=== PATIENT | male | born 1955 | race Caucasian/White ===

== ENCOUNTER → 2023-10-01 09:33 | Outpatient (REF) | payer BC, SELFPAY | LOC: RAD 09:33 | PROVIDERS: ATTENDING PHYSICIAN Podiatrist Foot Surgery; FAMILY PHYSICIAN Family Medicine; REFERRING PHYSICIAN Podiatrist | DX: I70.90 Unspecified atherosclerosis (principal) | CPT/HCPCS: 93922; 93925 ==

== ENCOUNTER → 2023-11-22 10:53 | Outpatient (REF) | payer BC, SELFPAY ==
[2023-11-22 11:35] LABS: % Basophils 0.9 % (0-2); % Eosinophils 3.2 % (0-6); % Immature Granulocytes 0.2 % (0-0.5); % Lymphocytes 40.4 % (20.5-51.1); % Monocytes 7.1 % (1.7-9.3); % Neutrophils 48.2 % (42.2-75.2); Absolute Basophils 0.1 10^3/uL (0-0.2); Absolute Eosinophils 0.2 10^3/uL (0-0.7); Absolute Lymphocytes 2.2 10^3/uL (1.2-3.4); Absolute Monocytes 0.4 10^3/uL (0.1-0.6); Absolute Neutrophils 2.6 10^3/uL (1.4-6.5); Hematocrit 44.7 % (39.0-52.0); Hemoglobin 14.8 g/dL (13.0-18.0); Mean Corp Hgb Conc. 33.1 g/dL (33.0-37.0); Mean Corpuscular Hgb 29.9 pg (27.0-31.0); Mean Corpuscular Volume 90.3 fL (80.0-94.0); Mean Platelet Volume 10.2 fL (7.4-10.4); Nucleated Red Blood Cells % 0 % (-); Platelet Count 180 10^3/uL (130-400); Red Blood Cell Count 4.95 10^6/uL (4.70-6.10); Red Cell Dist. Width 12.5 % (11.5-14.5); White Blood Cell Count 5.3 10^3/uL (4.8-10.8)
[2023-11-22 13:06] LABS: Iron 77 ug/dl (49-181)
[2023-11-22 13:16] LABS: Percent Saturation 31 % (20-50); Total Iron Binding Capacity 244 ug/dl (261-462)
[2023-11-22 13:39] LABS: Ferritin 54.5 ng/ml (17.9-464.0)
== END ==
LOC: REG 10:53
PROVIDERS: ATTENDING PHYSICIAN Internal Medicine Hematology & Oncology; FAMILY PHYSICIAN Family Medicine
DX: D68.61 Antiphospholipid syndrome (principal); I67.81 Acute cerebrovascular insufficiency; D50.9 Iron deficiency anemia, unspecified
CPT/HCPCS: 36415; 82728; 83540; 83550; 85025

== ENCOUNTER → 2023-11-26 14:51 | Outpatient (REF) | payer BC, SELFPAY | LOC: RAD 14:51 | PROVIDERS: ATTENDING PHYSICIAN Family Medicine | DX: I65.23 Occlusion and stenosis of bilateral carotid arteries (principal) | CPT/HCPCS: 93880 ==

== ENCOUNTER → 2023-11-30 06:30 | Outpatient (REF) | payer BC, SELFPAY ==
[2023-11-30 07:30] LABS: ALT (SGPT) 26 U/L (0-50); AST (SGOT) 27 U/L (17-59); Albumin 4.1 g/dl (3.5-5.0); Alkaline Phosphatase 65 U/L (38-126); Blood Urea Nitrogen 10 mg/dl (9-20); Calcium 9.2 mg/dl (8.4-10.2); Carbon Dioxide 29 mmol/L (22-30); Chloride 104 mmol/L (98-107); Glucose 94 mg/dl (70-99); HDL Cholesterol 63 mg/dl; LDL Cholesterol, Calculated 64 mg/dl; Potassium 4.7 mmol/L (3.5-5.1); Sodium 140 mmol/L (135-145); Total Bilirubin 0.5 mg/dl (0.2-1.3); Total Cholesterol 142 mg/dl (50-199); Total Protein 6.9 g/dl (6.3-8.2); Triglyceride 76 mg/dl (10-149); Very Low Density Lipoprotein 15 mg/dl (0-30); eGFR > 60.00
[2023-11-30 08:02] LABS: PSA, Total - Diagnostic 2.24 ng/ml (0.0-4.0)
[2023-11-30 09:22] LABS: Glycohemoglobin (HgbA1c) 5.2 % (4.0-5.6)
== END ==
LOC: REG 06:30
PROVIDERS: ATTENDING PHYSICIAN Family Medicine
DX: E78.2 Mixed hyperlipidemia (principal); I10 Essential (primary) hypertension; R73.03 Prediabetes; N40.1 Benign prostatic hyperplasia with lower urinary tract symptoms
CPT/HCPCS: 36415; 80053; 80061; 83036; 84153

== ENCOUNTER → 2023-12-15 14:48 | Outpatient (REF) | payer BC, SELFPAY | LOC: RAD 14:48 | PROVIDERS: ATTENDING PHYSICIAN Internal Medicine; FAMILY PHYSICIAN Family Medicine | DX: M80.0AXS Age-related osteoporosis with current pathological fracture, other site, sequela (principal); M85.89 Other specified disorders of bone density and structure, multiple sites | CPT/HCPCS: 77080 ==

== ENCOUNTER → 2024-05-18 11:24 | Outpatient (REF) | payer BC, SELFPAY | LOC: REG 11:24 | PROVIDERS: ATTENDING PHYSICIAN Psychiatry & Neurology Neurology; FAMILY PHYSICIAN Family Medicine | DX: D68.61 Antiphospholipid syndrome (principal) | CPT/HCPCS: 36415 ==

== ENCOUNTER → 2024-05-22 13:38 | Outpatient (REF) | payer BC, SELFPAY ==
[2024-05-22 14:23] LABS: % Basophils 0.6 % (0-2); % Immature Granulocytes 0.2 % (0-0.5); % Lymphocytes 39.4 % (20.5-51.1); % Monocytes 7.8 % (1.7-9.3); Absolute Eosinophils 0.2 10^3/uL (0-0.7); Absolute Lymphocytes 2.5 10^3/uL (1.2-3.4); Absolute Monocytes 0.5 10^3/uL (0.1-0.6); Absolute Neutrophils 3.1 10^3/uL (1.4-6.5); Hematocrit 39.6 % (39.0-52.0); Hemoglobin 13.5 g/dL (13.0-18.0); Mean Corp Hgb Conc. 34.1 g/dL (33.0-37.0); Mean Corpuscular Hgb 29.2 pg (27.0-31.0); Mean Corpuscular Volume 85.7 fL (80.0-94.0); Mean Platelet Volume 10.3 fL (7.4-10.4); Nucleated Red Blood Cells % 0 % (-); Platelet Count 170 10^3/uL (130-400); Red Blood Cell Count 4.62 10^6/uL (4.70-6.10); Red Cell Dist. Width 12.7 % (11.5-14.5); White Blood Cell Count 6.3 10^3/uL (4.8-10.8)
[2024-05-22 14:56] LABS: ALT (SGPT) 24 U/L (0-50); AST (SGOT) 25 U/L (17-59); Albumin 4.2 g/dl (3.5-5.0); Alkaline Phosphatase 54 U/L (38-126); Blood Urea Nitrogen 12 mg/dl (9-20); Calcium 9.5 mg/dl (8.4-10.2); Carbon Dioxide 26 mmol/L (22-30); Chloride 99 mmol/L (98-107); Glucose 94 mg/dl (70-99); Iron 79 ug/dl (49-181); Potassium 4.5 mmol/L (3.5-5.1); Sodium 138 mmol/L (135-145); Total Bilirubin 0.5 mg/dl (0.2-1.3); Total Protein 6.9 g/dl (6.3-8.2); eGFR > 60.00
[2024-05-22 15:05] LABS: Percent Saturation 30 % (20-50); Total Iron Binding Capacity 260 ug/dl (261-462)
[2024-05-22 15:10] LABS: Vitamin D, 25-OH*** 33.3 ng/mL (30-80)
[2024-05-22 15:27] LABS: Ferritin 48.5 ng/ml (17.9-464.0)
== END ==
LOC: REG 13:38
PROVIDERS: ATTENDING PHYSICIAN Internal Medicine; FAMILY PHYSICIAN Family Medicine; OTHER PHYSICIAN Internal Medicine Hematology & Oncology
DX: M80.00XS Age-related osteoporosis with current pathological fracture, unspecified site, sequela (principal); D68.61 Antiphospholipid syndrome; I67.81 Acute cerebrovascular insufficiency; D50.9 Iron deficiency anemia, unspecified
CPT/HCPCS: 36415; 80053; 82306; 82728; 83540; 83550; 85025

== ENCOUNTER 2024-06-04 16:41 | Emergency (ER) | payer BC, SELFPAY ==
[2024-06-04 16:41] VITALS: BMI 24.4
[2024-06-04 16:46] VITALS: BP 123/70
--- NOTE | 2024-06-04 17:27 | ED.GENMED ---
History of Present Illness
General
Chief Complaint: Musculo-Skeletal Complaint
Source: patient
Time Seen by Provider: 06/04/24 17:17
History of Present Illness
History of Present Illness:
69-year-old male presents emerged complaint pain right lateral thigh. Patient has a history of clotting disorder. He had a recent CVA. He was converted to Lovenox after this recent hospitalization for CVA. No specific injury. No chest pain or
shortness of breath. No numbness or tingling in his lower right leg.
Past History
Past History
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
ED Past Surgical History: Appendectomy
Social History
Tobacco: Non-smoker
Alcohol: Occasional
Drug: None
Personal:
Living: with family
Employment: Employed
Family History
Family History: Other (Noncontributory)
Phy Exam
Physical Exam
Physical Exam:
General: Awake, Alert, Oriented X3. No acute distress.
Vitals: unremarkable
Head: Atraumatic
Eyes: Pupils equal, EOMI
Neck: Trachea midline
Neuro: Grossly nonfocal
Skin: Warm, dry, no rash
Extremities: Swelling and tenderness right lateral thigh, no ecchymosis. No rash. Pulses intact.
Course
Orders/Labs/Results
Orders:
Orders
06/04/24 17:25
Acetaminophen [Tylenol] 1,000 mg PO NOW STA
US Periph Venous LOWER Ext RT Urgent
Comment: Please image the area of tenderness, ? hematoma
Reason For Exam: swelling, pain right thigh
Vital Signs
Initial and Last Documented VS:
Initial Vital Signs
Temp Pulse Resp BP Pulse Ox
98.5 F 89 20 123/70 98
06/04/24 16:46 06/04/24 16:46 06/04/24 16:46 06/04/24 16:46 06/04/24 16:46
Last Documented Vital Signs
Temp Pulse Resp BP Pulse Ox
98.5 F 89 20 123/70 98
06/04/24 16:46 06/04/24 16:46 06/04/24 16:46 06/04/24 16:46 06/04/24 16:46
MDM/Problems Addressed
Differential Diagnosis Includes:
Right thigh hematoma, DVT, muscle spasm
MDM/Problems Addressed:
Ultrasound shows no evidence for DVT. There is a thigh hematoma. Patient does not believe this is changed in size for at least a couple days. No acute intervention required. Patient or stands return to the emergency room if he feels that area is
getting larger or if he develops a fever.
*Radiology
Radiology exam reviewed: radiology read reviewed
*Pulse Oximetry
Patient hypoxic: no
*Critical Care Note
Total Time (30-74mins, 75-104mins- exclusive of procedures): Not Applicable
ED Attending Note
-
Portions of this chart may have been created with voice recognition software.� Occasional wrong word or��sound alike� substitutions may have occurred due to the inherent limitations of voice recognition software.
Discharge Plan
Departure
Patient Disposition: Home (Routine Discharge)
Date of Disposition: 06/04/24
Time of Disposition: 19:47
Patient with high blood pressure during this ER visit?: No
Condition: Good
Discharge Problem:
Hematoma of right thigh
Instructions: Hematoma
Prescriptions:
No Action
nortriptyline 10 MG capsule
30 mg PO HS
hydroxychloroquine 200 MG tablet
200 mg PO BID
atorvastatin 20 MG tablet
20 mg PO HS
amlodipine 5 MG tablet
5 mg PO HS
warfarin [Jantoven] 5 MG tablet
10 mg PO HS
Patient Comments:
10-12.5mg po EOD
cyclobenzaprine 5 MG tablet
5 mg PO HSPRN PRN (Reason: spasm)
gabapentin 400 MG capsule
1,200 mg PO TID
solifenacin 5 MG tablet
5 mg PO HS
cholecalciferol (vitamin D3) 2,000 UNITS tablet
5,000 units PO HS
cyanocobalamin (vitamin B-12) 1,000 MCG tablet
1,000 mcg PO HS
thiamine HCl (vitamin B1) 100 MG tablet
100 mg PO HS
Referrals:
Kurt Thornton, [Family Provider] -
Activity Restrictions/Additional Instructions:
Your ultrasound is negative for a DVT. The pain is from a hematoma in the left thigh which should slowly go away on its own. Return to the ER if this is getting larger or you develop a fever.
Interventions
Interventions:
*Risk Screen - Suicide Last Done: 06/04/24 16:46
*General Assessment Last Done: 06/04/24 19:57
*Neglect/Abuse Screening Last Done: 06/04/24 16:48
ED- Fall Risk Assessment Last Done: 06/04/24 19:57
*ED COVID-19 Vaccine History Last Done: 06/04/24 19:57
*Nursing Disposition Last Done: 06/04/24 19:57
ED-Musculoskeletal Assessment Last Done: 06/04/24 17:46
Discharge Date and Time
Discharge Date/Time: 06/04/24 19:59
Print Language: ARABIC
[2024-06-04] MEDS: TYLENOL 1000 MG PO (17:37)
== END 2024-06-04 19:59 | disposition home or self-care (01) ==
LOC: EMR 16:41
PROVIDERS: EMERGENCY PHYSICIAN Emergency Medicine; FAMILY PHYSICIAN Family Medicine
DX: S70.11XA Contusion of right thigh, initial encounter (principal); X58.XXXA Exposure to other specified factors, initial encounter
CPT/HCPCS: 99284; 93971

== ENCOUNTER 2024-06-10 09:46 | Inpatient (IN) | payer BC, SELFPAY ==
[2024-06-09 12:28] VITALS: BP 143/75
--- NOTE | 2024-06-09 13:23 | ED.GENMED ---
History of Present Illness
General
Chief Complaint: Skin Problem
Source: patient and spouse
Time Seen by Provider: 06/09/24 13:12
Nursing documentation reviewed up to this point in time: agreed with
History of Present Illness
History of Present Illness:
Patient is a 69-year-old male with past medical history of antiphospholipid syndrome presents to the ER for evaluation. Patient has a recent history of central retinal artery occlusion of left eye and has been evaluated by his lead handler
Josh. This occurred in May 11, 2024. Since then he has been on Lovenox plus aspirin. Patient started with hematoma to the right leg 5 days ago. He was seen here in the ER and diagnosed with a hematoma however since then hematoma has
worsened. He has increasing pain in his barely able to walk because of pain.
In addition he feels a little bit confused at times. He has not taken any pain medication. He did follow-up with his lead handler today who sent him here to the ER also for concerning confusion in addition to worsening hematoma. Dr. Moreno
has requested workup for central retinal artery occlusion including carotid ultrasound and echo.
Patient denies any lightheadedness dizziness
Past History
Past History
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
ED Past Surgical History: Appendectomy
Social History
Tobacco: Non-smoker
Alcohol: Occasional
Drug: None
Personal:
Living: with family
Employment: Employed
Family History
Family History: Other (Noncontributory)
Review of Systems
Review of Systems
Allergies reviewed?: Yes
Other source history: family
All Other Systems: ROS reviewed and negative except as documented in HPI and ROS
Constitutional: Reports no symptoms; Denies fever, fatigue or chills
EENT: Reports no symptoms
Respiratory: Reports no symptoms
Cardiac: Reports no symptoms
ABD/GI: Reports no symptoms
Musculoskeletal: Reports other (worsening hematoma right thigh )
Skin: Reports no symptoms
Neurological: Reports no symptoms
Psychiatric: Reports no symptoms
Phy Exam
General Physical Exam
General Presentation: no apparent distress
General age: appears stated age
General Skin: warm and dry
General Habitus: normal
General Mental: alert
General Hydration: appears well hydrated
Eye Exam
Eye Exam: PERRL, EOMI and other (no vision in left eye (new since CRAO in apr) )
Eye Exam General: PERRL: bilateral and EOM intact: bilateral
Pupil Exam: Bilateral: round and reactive
Cardiovascular Exam
Cardiovascular Exam: regular rate/rhythm, no murmur and normal peripheral pulses
Pulmonary Exam
Pulmonary Exam: lungs clear and no respiratory distress
Neurological Exam
Neurological Exam: alert, oriented x3, no motor deficits, no sensory deficits and speech normal
Musculoskeletal Exam
Musculoskeletal Exam: other (Right thigh with obvious palpable large hematoma to lateral thigh with ecchymosis ecchymosis also extending to knee)
Skin Exam
Skin Exam: normal color and warm/dry
Psychiatric Exam
Psychiatric Exam: normal mood/affect
Course
Orders/Labs/Results
Orders:
Orders
06/09/24 13:23
CT Head W/o Iv Contrast Urgent
Comment:
Reason For Exam: confusion
IV Insert/Care/Rem.- Treatment PRN
06/09/24 13:25
Carotid US [US Cerebrovascular] Urgent
Comment:
Reason For Exam: confusion
06/09/24 13:33
Type+Screen Urgent
Complete Blood Count/With Diff Urgent
Comprehensive Metabolic Panel Urgent
06/09/24 13:43
CT Lower Ext Angio W/wo Iv Con Urgent
Comment: delayed images please
Reason For Exam: woresning hematoma concern for active bleeding
Abnormal Lab Results
06/09/24
13:33
RBC 4.11 L 10^6/uL
(4.70-6.10)
Hgb 12.5 L g/dL
(13.0-18.0)
Hct 37.1 L %
(39.0-52.0)
Creatinine 0.6 L mg/dL
(0.7-1.3)
Glucose 120 H mg/dl
(70-99)
06/09/24 13:33
06/09/24 13:33
Vital Signs
Initial and Last Documented VS:
Initial Vital Signs
Temp Pulse Resp BP Pulse Ox
97.8 F 70 16 143/75 98
06/09/24 12:28 06/09/24 12:28 06/09/24 12:28 06/09/24 12:28 06/09/24 12:28
Last Documented Vital Signs
Temp Pulse Resp BP Pulse Ox
97.8 F 68 18 144/82 100
06/09/24 12:28 06/09/24 17:48 06/09/24 17:48 06/09/24 17:48 06/09/24 17:48
MDM/Problems Addressed
Differential Diagnosis Includes:
not limited to: active bleed in right thigh/hematoma, anemia,
MDM/Problems Addressed:
69 yr old male with past medical history of antiphospholipid syndrome on Lovenox and aspirin presents for evaluation. Patient as documented recently had a central retinal artery occlusion in the left eye in April and is followed by Dr. Moreno of
ophthalmology he was placed on aspirin in addition to Lovenox and since then developed a spontaneous hematoma to right thigh. He was seen here on Wednesday had ultrasound which showed hematoma but is back today with increasing pain and size of
hematoma. CT angio done on the right leg with no active bleeding. Patient denies any weakness to the leg denies any new numbness and tingling. He does have some chronic numbness and tingling. Denies any calf tenderness. No evidence of
compartment syndrome on exam. No evidence of infection.
In addition patient was sent by ophthalmology who is following his central retinal artery occlusion of the left eye. Patient has been a little more confused lately however he does contribute this to just feeling discomfort in his leg. He has a
normal neurologic exam here in the ER CT head with no new acute findings.
Ophthalmology did request a carotid ultrasound which is done and pending. Patient did have an echo at [facility] which was normal as per
*Radiology
Radiology exam reviewed: radiology read reviewed
*Pulse Oximetry
Patient hypoxic: no
*Critical Care Note
Total Time (30-74mins, 75-104mins- exclusive of procedures): Not Applicable
Data Reviewed
Review of Other/Old Records Reveals: Other (previous ED visit)
Source: patient and spouse
ED Attending Note
-
Portions of this chart may have been created with voice recognition software.� Occasional wrong word or��sound alike� substitutions may have occurred due to the inherent limitations of voice recognition software.
Discharge Plan
Departure
Patient Disposition: Admit
Date of Disposition: 06/09/24
Time of Disposition: 16:27
Admit to: Med/Surg
Admit to doctor: hospitalist
Presentation/result/management discussed w/ accepting MD/DO: Hospitalist
Patient with high blood pressure during this ER visit?: Yes
Condition: Fair
Covid-19: Not Applicable
Discharge Problem:
Hematoma of right thigh, Central artery occlusion of retina
Prescriptions:
No Action
nortriptyline 10 MG capsule
30 mg PO HS
hydroxychloroquine 200 MG tablet
200 mg PO BID
atorvastatin 20 MG tablet
20 mg PO HS
solifenacin 5 MG tablet
5 mg PO HS
cyanocobalamin (vitamin B-12) 1,000 MCG tablet
1,000 mcg PO DAILYPRN PRN (Reason: Supplement)
thiamine HCl (vitamin B1) 100 MG tablet
100 mg PO DAILYPRN PRN (Reason: supplement)
gabapentin 600 mg tablet
1,200 mg PO Q8
amlodipine 2.5 mg tablet
2.5 mg PO HS
enoxaparin 80 mg/0.8 mL syringe
80 mg SC BID
cholecalciferol (vitamin D3) 125 mcg (5,000 unit) Tablet
125 mcg PO DAILYPRN PRN (Reason: supplement)
Referrals:
Kurt Thornton DO [Family Provider] -
Interventions
Interventions:
*Risk Screen - Suicide Last Done: 06/09/24 12:28
*General Assessment Last Done: 06/09/24 12:28
*Neglect/Abuse Screening Last Done: 06/09/24 12:28
ED-Skin Assessment Last Done: 06/09/24 13:38
Discharge Date and Time
Print Language: NORTHER[place] IRISH
[2024-06-09 13:40] LABS: % Basophils 0.6 % (0-2); % Eosinophils 2.3 % (0-6); % Immature Granulocytes 0.2 % (0-0.5); % Lymphocytes 25.2 % (20.5-51.1); % Monocytes 6.7 % (1.7-9.3); Absolute Eosinophils 0.2 10^3/uL (0-0.7); Absolute Lymphocytes 1.6 10^3/uL (1.2-3.4); Absolute Monocytes 0.4 10^3/uL (0.1-0.6); Absolute Neutrophils 4.2 10^3/uL (1.4-6.5); Hematocrit 37.1 % (39.0-52.0); Hemoglobin 12.5 g/dL (13.0-18.0); Mean Corp Hgb Conc. 33.7 g/dL (33.0-37.0); Mean Corpuscular Hgb 30.4 pg (27.0-31.0); Mean Corpuscular Volume 90.3 fL (80.0-94.0); Mean Platelet Volume 10.2 fL (7.4-10.4); Nucleated Red Blood Cells % 0 % (-); Platelet Count 151 10^3/uL (130-400); Red Blood Cell Count 4.11 10^6/uL (4.70-6.10); Red Cell Dist. Width 12.6 % (11.5-14.5); White Blood Cell Count 6.4 10^3/uL (4.8-10.8)
[2024-06-09 14:09] LABS: ALT (SGPT) 21 U/L (0-50); AST (SGOT) 26 U/L (17-59); Albumin 4.2 g/dl (3.5-5.0); Alkaline Phosphatase 59 U/L (38-126); Blood Urea Nitrogen 10 mg/dl (9-20); Calcium 8.9 mg/dl (8.4-10.2); Carbon Dioxide 28 mmol/L (22-30); Chloride 99 mmol/L (98-107); Glucose 120 mg/dl (70-99); Potassium 4.5 mmol/L (3.5-5.1); Sodium 138 mmol/L (135-145); Total Bilirubin 0.9 mg/dl (0.2-1.3); Total Protein 6.8 g/dl (6.3-8.2); eGFR > 60.00
--- NOTE | 2024-06-09 17:02 | PHANOTE ---
Med Rec Note:
Pt mentioned taking Lisinopril 5mg, medication not shown in Dr Meneses. Per [facility] Dr Corcoran discontinued medication on 08/16/23.
--- NOTE | 2024-06-09 17:32 | HPS.HSE ---
Family Physician
-
Family Physician: Kurt Thornton
Chief Complaint
-
Right thigh hematoma with pain, increased confusion from baseline short-term memory impairment
History of Present Illness
69-year-old male with history of antiphospholipid syndrome who is on Lovenox and aspirin due to a Central retinal artery occlusion of his Left eye that is being followed by Dr. Moreno. He reports he has loss of vision in his left eye since then.
He was on prior Coumadin for prior strokes x 3 but needed to be changed to Lovenox and aspirin due to retinal artery occlusion on 05/11/2024. Since being on aspirin and Lovenox he developed a spontaneous hematoma to his right thigh and was seen in
the ER on 06/04/2022 where he had an ultrasound confirming the hematoma. He comes today to the ER complaining of increased size of his Right thigh hematoma with continued pain along with feeling a little bit more confused although not
confused here. He and his state he has some short-term memory impairment secondary to his prior strokes along with some mild chronic ambulatory dysfunction. He reports he does not use a cane due to being vein, although he reports he has been
very unsteady the past few days due to the pain in his right thigh. He also believes that his short-term confusion is worse due to the pain being overwhelming at times. He spoke with his paleontology teacher who sent him here to the ER for a CVA
workup. In the ER he had CT angio of his right leg with no active bleeding along with CT head showing no acute stroke. His carotid ultrasound results are currently pending. He had recent MRI at [facility] which was normal per ER records.
His past medical history of antiphospholipid antibody syndrome with history of 3 cryptogenic strokes, chronic short-term memory impairment likely vascular from 3 prior strokes, left eye retinal artery occlusion 05/12/2024, HTN, HLD, Schatzki's ring,
hiatal hernia, BPH, compression fracture T5, erectile dysfunction, neurogenic bladder, diverticulosis, neuropathic pain syndrome, vitamin D deficiency
Medical History
Past Medical History
Past Medical History: Reports Other
Additional Past Medical History:
antiphospholipid antibody syndrome with history of 3 cryptogenic strokes
chronic short-term memory impairment likely vascular from 3 prior strokes
Chronic ambulatory dysfunction from prior strokes
left eye retinal artery occlusion 05/12/2024
Right thigh hematoma spontaneous from Lovenox/aspirin
Alcohol use
HTN
HLD
Schatzki's ring,
hiatal hernia
BPH
Chronic micturation
compression fracture T5
erectile dysfunction
diverticulosis,
neuropathic pain syndrome,
vitamin D deficiency
Past Surgical History: Reports Other
Additional Past Surgical History:
Right knee ligament repair as teen
Appendectomy
Schatzki's ring dilation x 3
Colonoscopy x 4
Social History
Tobacco: Non-smoker
Alcohol: Daily (2 beers)
Drug: None
Personal:
Living: With Family ()
Family History
Family History: Not pertinent
Allergies / Home Medications
Allergies reflects when Allergies were last updated in [employer].
Home Medications with original date entered in [employer]
Allergy/Medication List:
Allergies
Allergy/AdvReac Type Severity Reaction Status Date / Time
meperidine HCl [From Demerol] Allergy 'severe Verified 06/09/24 12:28
vomiting'
Home Medications
hydroxychloroquine 200 mg tablet 200 mg PO BID ARTHRITIS 02/11/16
nortriptyline 10 mg capsule 30 mg PO HS mental health 02/11/16
atorvastatin 20 mg tablet 20 mg PO HS High cholesterol 08/06/19
cyanocobalamin (vitamin B-12) 1,000 mcg tablet 1,000 mcg PO DAILYPRN PRN Supplement 03/04/20
solifenacin 5 mg tablet 5 mg PO HS Urinary issue 03/04/20
thiamine HCl (vitamin B1) 100 mg tablet 100 mg PO DAILYPRN PRN supplement 03/04/20
Aspir-81 81 mg PO HS 06/09/24
amlodipine 2.5 mg tablet 2.5 mg PO HS 06/09/24
cholecalciferol (vitamin D3) 125 mcg (5,000 unit) tablet 125 mcg PO DAILYPRN PRN supplement 06/09/24
enoxaparin 80 mg/0.8 mL subcutaneous syringe 80 mg SC BID 06/09/24
gabapentin 600 mg tablet 1,200 mg PO Q8 06/09/24
Review of Systems
-
History Source: Patient and Family ( at bedside)
A 12 point ROS was completed and negative except as noted: Yes
Constitutional: Reports Other (Increased short-term confusion thought to be felt due to right thigh hematoma pain); Denies Fever or Chills
EENT: Denies Sore Throat or Runny Nose
Respiratory: Denies Cough or Trouble Breathing
Cardiac: Denies Chest Pain, Diaphoresis, Palpitations or Syncope
Abdomen/GI: Denies Abdominal Pain, Nausea, Vomiting, Diarrhea, Constipated or Bloody Stools
: Denies Dysuria, Frequency, Flank Pain, Incontinence, Difficulty Voiding or Urgency
Musculoskeletal: Reports Other (Right thigh hematoma with resolving ecchymosis present on admission, acute on chronic ataxia due to thigh pain); Denies Joint Pain or Edema
Skin: Denies Itching or Rash
Neurological: Denies Dizzy, Headache or Weakness
Endocrine: Reports No Symptoms
Hematologic/Lymphatic: Reports No Symptoms
Psych: Reports Calm
Physical Exam
Vital Signs
Vital Signs
Temp Pulse Resp BP Pulse Ox
97.8 F 70 16 143/75 98
06/09/24 12:28 06/09/24 12:28 06/09/24 12:28 06/09/24 12:28 06/09/24 12:28
Physical Exam
General: Conversant and Pain; No Fever or Chills
HEENT: NormoCephalic, Anicteric, Moist mucous membranes, [place] Conjunctivae and No Ptosis
Respiratory: Clear; No Wheezes, Rales or Rhonchi
Cardiac: S1/S2 and Regular Rhythm; No Murmur, Rub, Gallop, Peripheral Edema or Carotid Bruits
Breast: Deferred by me
GI: Soft, Non Tender, Non Distended, Normal Bowel Sounds and No Hepatosplenomegaly
Rectal: Deferred by Provider
Genito-urinary: Deferred by me
Musculoskeletal: No Clubbing, No Cyanosis, No Edema and Other (Right thigh hematoma with resolving ecchymosis present on admission)
Skin: Warm and Dry; No Rash
Neuro: AO x 3 (With chronic short-term memory impairment), Cranial Nerves Intact and No Sensory Deficits; No Slurred Speech, Facial Droop, Tremors or Sedated
Psych: Calm
Laboratory Results
-
06/09/24 13:33
06/09/24 13:33
Laboratory Results
Total Bilirubin 0.9 mg/dl (0.2-1.3) 06/09/24 13:33
AST 26 U/L (17-59) 06/09/24 13:33
ALT 21 U/L (0-50) 06/09/24 13:33
Alkaline Phosphatase 59 U/L (38-126) 06/09/24 13:33
Data Reviewed
-
Lab Data: Labs Reviewed by me
Impression/Plan
-
Impression/plan:
Observation telemetry
#Acute on Chronic Right thigh hematoma likely secondary to Lovenox and aspirin
#Hx antiphospholipid antibody syndrome
-Was seen in ER on 06/04/2024 with no medication changes
-Hgb 12.5 today prior 13.5 on 05/22/2024
-Patient was on aspirin from 05/12/2024 until last night 06/08/2024 he held due to expanding hematoma
-HOLD aspirin 81 mg at bedtime -last dose was 06/08/24 @ 2200
-HOLD Lovenox 80 mg twice daily x 24 hours
-H&H every 12 hours
-Tylenol mild pain, Percocet moderate�severe pain
-Zofran as needed nausea
-Consult Hematology-given history of antiphospholipid antibody syndrome
#Acute ambulatory dysfunction secondary to pain from right thigh hematoma
#chronic ambulatory dysfunction secondary to prior strokes
-Will consult PT/OT
#Acute on chronic short-term memory impairment from prior strokes
#Hx 3 cryptogenic CVAs(most recent subarachnoid July 2016, prior embolic strokes)
#Hx antiphospholipid antibody syndrome
-Consult Neurology
-Check MRI brain
-Check lipid profile, HgbA1c
-2D echo recent at [facility] was negative�scanned into chart
-PT/OT consult
CT head no acute intracranial abnormality
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
Patient's Coumadin was converted to Lovenox 80 mg SQ twice daily with aspirin 81 mg added on 05/12/2024 due to above retinal occlusion in April 2024
-Patient follows with Dr. Moreno
-HOLD aspirin 81 mg daily
#Alcohol use
Drinks daily 2 beers
-Will continue patient's B12
-No concern currently for any possible withdrawal
# HTN-benign
BP 144/82
-Continue amlodipine 2.5 mg at bedtime
#HLD
-Check lipid profile
-Continue atorvastatin 20 mg at bedtime
#BPH
#Chronic difficulty voiding needs to stand and focus per patient
-Bladder scans with protocol
#Schatzki's ring with history of 3 dilations for 2013, 2015, 03/07/2020
-Can now eat regular diet
#Hiatal hernia
#Compression fracture T5
#Neuropathic pain syndrome
-Continue gabapentin 1200 mg p.o. every 8 hours
#Anxiety
Continue nortriptyline 30 mg at bedtime
#Arthritis right knee
Continue hydroxychloroquine 200 mg twice daily
Other PMH:
Erectile dysfunction -hold solifenacin 5 mg at bedtime
diverticulosis,
vitamin D deficiency-continue vitamin D3
DVT prophylaxis
Will currently hold patient's Lovenox x 24 hours due to right thigh hematoma
Full code
[2024-06-09 17:48] VITALS: BP 144/82
--- NOTE | 2024-06-09 17:54 | W.PN.UPDATE ---
Update Note
Progress Note Update
I saw and examined the patient.
The AMERICAN SIGN LANGUAGE TEACHER's note was reviewed and I agree with the note.
Patient is a 69yr M APLS, left CRAO, HLD, essential HTN, dep/anxiety came to ER with worsening right leg thigh hematoma. On 05/11 patient had new left CRAO and was seen by ophthalmology. Patient has been switched from warfarin to Lovenox/aspirin.
On Wednesday patient was noted to having new spontaneous right mid thigh swelling and pain, came to ER for this and was found to have small [id number] superficial hematoma. Due to patient increased risk of clotting disorder patient was maintained on
Lovenox aspirin and was discharged home. Patient came to ER today again for worsening pain and extending swelling proximal and distal in the right thigh. A CT right leg showing further extension of hematoma cranio caudally. Patient have ambulatory
dysfunction from pain.
HEENT: No pallor, cyanosis, or jaundice. Throat clear.
NECK: Supple. No JVD.
RESPIRATORY: Lungs clear to auscultation.
CVS: S1, S2 normal. RRR. No murmur, rub or gallop.
ABDOMEN: Soft, non-tender. No distension. BS+/normal.
EXTREMITIES: Swelling RLE
FOUNDRY SUPERINTENDANT: AOx3. No focal deficits.
Right leg hematoma
-CT RLE showing extension hematoma
-no clinical signs of limb threatening ischemia/compartment syndrome. continue monitoring
-Hold lovenox for tonight
-hematology input in [facility],. f/us with dr lynch
-continue PRN pain medication
-PT/OT evaluation in morning
Left CRAO in may 11
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
-f/us with Dr Berrios
Confusion
-aox3 in er, some memory issues
-No signs of any infection
-opthal wanted to r/o cva, clinically less likely
-MRI brain w/o contrat in morning
DVT PPX - scd
Full code
Total time spent : 78 mins
I personally saw and examined the patient.
I have reviewed all diagnostic interpretations and treatment plans as written.
Time includes patient management by me, time spent at the patients bedside, time to review lab and imaging results, discussing patient care, documentation in the medical record, and time spent with the family or caregiver and discussing care plan
with RN/Consultants.
[2024-06-09] MEDS: PERCOCET 5/325 1 TABLET PO (18:35)
[2024-06-09 18:37] VITALS: BMI 24.4
--- NOTE | 2024-06-09 20:40 | PTCARENOTE ---
Patient arrived to 316-2 from ED via stretcher, ambulated from stretcher to bed with standby assist. Patient alert and oriented, able to answer questions appropriately. NIH score 0 upon admission. Initiated on traffic monitor specialist #[id number] -- NSR. C/o
slight discomfort to right leg at area of hematoma and swollen knee -- tolerable. Area of hematoma marked on skin to evaluate. Awaiting heme consult and MRI brain at this time. Call pablo within reach, patient rings for assistance appropriately when
needed. Will monitor.
[2024-06-09 20:54] VITALS: BMI 24.5
[2024-06-09 20:55] VITALS: BP 130/73
[2024-06-09] MEDS: PAMELOR 30 MG PO (21:51)
[2024-06-09] MEDS: NORVASC 2.5 MG PO (21:51)
[2024-06-09] MEDS: PLAQUENIL 200 MG PO (21:51)
[2024-06-09] MEDS: LIPITOR 20 MG PO (21:51)
[2024-06-09 23:25] VITALS: BP 103/74
[2024-06-10] VITALS (7 sets, daily range): BP systolic 109–124; BP diastolic 68–79
[2024-06-10] MEDS: NEURONTIN 1200 MG PO ×4 (00:41→23:29)
[2024-06-10 02:38] LABS: Hematocrit 37.5 % (39.0-52.0); Hemoglobin 12.7 g/dL (13.0-18.0)
[2024-06-10 06:52] LABS: % Basophils 0.6 % (0-2); % Eosinophils 3.6 % (0-6); % Immature Granulocytes 0.2 % (0-0.5); % Lymphocytes 29.5 % (20.5-51.1); % Neutrophils 57.1 % (42.2-75.2); Absolute Eosinophils 0.2 10^3/uL (0-0.7); Absolute Lymphocytes 1.6 10^3/uL (1.2-3.4); Absolute Monocytes 0.5 10^3/uL (0.1-0.6); Absolute Neutrophils 3.1 10^3/uL (1.4-6.5); Hematocrit 39.1 % (39.0-52.0); Hemoglobin 12.9 g/dL (13.0-18.0); Mean Corpuscular Hgb 29.7 pg (27.0-31.0); Mean Corpuscular Volume 89.9 fL (80.0-94.0); Mean Platelet Volume 10.3 fL (7.4-10.4); Nucleated Red Blood Cells % 0 % (-); Platelet Count 165 10^3/uL (130-400); Red Blood Cell Count 4.35 10^6/uL (4.70-6.10); Red Cell Dist. Width 12.4 % (11.5-14.5); White Blood Cell Count 5.4 10^3/uL (4.8-10.8)
[2024-06-10 07:14] LABS: ALT (SGPT) 20 U/L (0-50); AST (SGOT) 25 U/L (17-59); Albumin 3.9 g/dl (3.5-5.0); Alkaline Phosphatase 64 U/L (38-126); Blood Urea Nitrogen 9 mg/dl (9-20); Calcium 8.9 mg/dl (8.4-10.2); Carbon Dioxide 27 mmol/L (22-30); Chloride 104 mmol/L (98-107); Estimated Creatinine Clearance > 125 ml/min; Glucose 102 mg/dl (70-99); HDL Cholesterol 50 mg/dl; LDL Cholesterol, Calculated 44 mg/dl; Potassium 4.5 mmol/L (3.5-5.1); Sodium 140 mmol/L (135-145); Total Bilirubin 0.8 mg/dl (0.2-1.3); Total Cholesterol 109 mg/dl (50-199); Total Protein 6.5 g/dl (6.3-8.2); Triglyceride 79 mg/dl (10-149); Very Low Density Lipoprotein 15 mg/dl (0-30); eGFR > 60.00
--- NOTE | 2024-06-10 07:26 | CON.ONC ---
Impression
Impression
Antiphospholipid antibody syndrome with history of 3 cryptogenic strokes
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
Spontaneous right leg hematoma while on anticoagulation
Plan
Plan
CT RLE showing extension hematoma without signs of limb threatening ischemia/compartment syndrome.
Hold Lovenox & aspirin for 24 hours. Resume tonight as VERY HIGH RISK if he remains off A/C too long.
He was on 1 mg/kg SQ Q12 + ASA 81 mg PO QD.
RESUME 0.5 mg/kg tonight 10 pm. If hematoma stable, increase to 1 mg/kg Monday 06/11 10 AM x 1 dose. If remains stable, resume 1 mg/kg SQ Q12 Tuesday 06/12.
Resume ASA 81 mg PO QD on Wednesday 06/13.
Because of the complexity of this situation and the monitoring that needs to happen for this step therapy, I DID NOT ENTER ABOVE ORDERS. Will ask attending to when he arrives. Will coordinate.
Patient History
History of Present Illness
CC: Right leg hematoma.
Patient is a 69yr M with antiphospholipid syndrome who is on Lovenox and aspirin (follows with [facility]) with multiple prior anticoagulation failures. He most recently had a central retinal artery occlusion of his left eye that is being followed by
Dr. Moreno. He has left eye blindness result of that CVA. He was on prior Coumadin for prior strokes x 3 but needed to be changed to Lovenox and aspirin due to retinal artery occlusion on 05/11/2024. Since being on aspirin and Lovenox he
developed a spontaneous hematoma to his right thigh and was seen in the ER on 06/04/2022 where he had an ultrasound confirming the hematoma. He comes back to the ER yesterday 06/09 complaining of increased size of his right thigh hematoma.
A CT right leg showing further extension of hematoma cranio caudally. Patient was having ambulatory dysfunction from pain last night, seems better this AM. Lovenox and ASA held.
Past-Medical/Surgical History
PMH:
antiphospholipid antibody syndrome with history of 3 cryptogenic strokes
chronic short-term memory impairment likely vascular from 3 prior strokes
chronic ambulatory dysfunction from prior strokes
left eye retinal artery occlusion 05/12/2024
Right thigh hematoma spontaneous from Lovenox/aspirin
Alcohol use
HTN
HLD
schatzki's ring,
hiatal hernia
BPH
Chronic micturation
compression fracture T5
erectile dysfunction
diverticulosis,
neuropathic pain syndrome,
vitamin D deficiency
PSH:
Right knee ligament repair as teen
Appendectomy
Schatzki's ring dilation x 3
Colonoscopy x 4
Social History
Tobacco: Non-smoker
Alcohol: Daily (2 beers)
Drug: None
Personal:
Living: With Family ()
Family History
Family History: Not pertinent
Patient Medication
�Medication �Instructions �Recorded �Confirmed �Last Taken �Type
hydroxychloroquine 200 mg tablet 200 mg PO BID ARTHRITIS 02/11/16 06/09/24 06/09/24 History
nortriptyline 10 mg capsule 30 mg PO HS mental health 02/11/16 06/09/24 06/08/24 History
atorvastatin 20 mg tablet 20 mg PO HS High cholesterol 08/06/19 06/09/24 06/08/24 History
cyanocobalamin (vitamin B-12) 1,000 mcg PO DAILYPRN PRN 03/04/20 06/09/24 06/15/20 History
1,000 mcg tablet Supplement
solifenacin 5 mg tablet 5 mg PO HS Urinary issue 03/04/20 06/09/24 06/08/24 History
thiamine HCl (vitamin B1) 100 mg 100 mg PO DAILYPRN PRN supplement 03/04/20 06/09/24 06/15/20 History
tablet
Aspir-81 81 mg PO HS 06/09/24 06/09/24 06/08/24 22:00 History
amlodipine 2.5 mg tablet 2.5 mg PO HS 06/09/24 06/09/24 06/08/24 History
cholecalciferol (vitamin D3) 125 125 mcg PO DAILYPRN PRN supplement 06/09/24 06/09/24 Unknown History
mcg (5,000 unit) tablet
enoxaparin 80 mg/0.8 mL 80 mg SC BID 06/09/24 06/09/24 06/09/24 History
subcutaneous syringe
gabapentin 600 mg tablet 1,200 mg PO Q8 06/09/24 06/09/24 06/09/24 History
Active Medications
Generic Name Dose Route Start Last Admin
Trade Name Freq PRN Reason Stop Dose Admin
Acetaminophen 650 mg 06/09/24 20:17
Acetaminophen 325 Mg Tablet PO 07/07/24 20:16
Q4HPRN PRN
mild pain/GARCIA/temp> 100.4F
Amlodipine Besylate 2.5 mg 06/09/24 22:00 06/09/24 21:51
Amlodipine 2.5 Mg Tablet PO 07/07/24 21:59 2.5 mg
HS SUZETTE Administration
Atorvastatin Calcium 20 mg 06/09/24 22:00 06/09/24 21:51
Atorvastatin (Lipitor) 20 Mg Tablet PO 07/07/24 21:59 20 mg
HS SUZETTE Administration
Bisacodyl 10 mg 06/09/24 20:17
Bisacodyl 10 Mg Rectal Suppository RECTAL 07/07/24 20:16
[id number] PRN
constipation
Cholecalciferol 125 mcg 06/09/24 20:17
Cholecalciferol (Vitamin D3) 125 Mcg Tablet (5,000 Units) PO 07/07/24 20:16
DAILYPRN PRN
supplement
Cyanocobalamin 1,000 mcg 06/09/24 20:17
Cyanocobalamin 1,000 Mcg Tablet PO 07/07/24 20:16
DAILYPRN PRN
Supplement
Gabapentin 1,200 mg 06/10/24 00:00 06/10/24 00:41
Gabapentin 400 Mg Capsule PO 07/08/24 00:00 1,200 mg
Q8 SUZETTE Administration
Hydroxychloroquine Sulfate 200 mg 06/09/24 20:17 06/09/24 21:51
Hydroxychloroquine 200 Mg Tablet PO 07/07/24 20:16 200 mg
BID SUZETTE Administration
Nortriptyline HCl 30 mg 06/09/24 22:00 06/09/24 21:51
Nortriptyline 10 Mg Capsule PO 07/07/24 21:59 30 mg
HS SUZETTE Administration
Ondansetron HCl 4 mg 06/09/24 18:11
Ondansetron 4 Mg/2 Ml Vial IV 07/07/24 18:10
Q6HPRN PRN
NAUSEA/VOMITING
Oxycodone HCl 5 mg 06/09/24 20:17
Oxycodone 5 Mg Regular Release Tablet PO 06/23/24 20:16
Q4HPRN PRN
moderate pain
Oxycodone HCl 10 mg 06/09/24 20:17
Oxycodone 10 Mg Regular Release Tablet PO 06/23/24 20:16
Q4HPRN PRN
severe pain
Polyethylene Glycol 17 grams 06/09/24 20:17
Polyethylene Glycol Powder 17 Grams Packet PO 07/07/24 20:16
DAILYPRN PRN
constipation
Senna/Docusate Sodium 1 tablet 06/09/24 20:17
Docusate W/Senna (Jodi-Colace) Tablet PO 07/07/24 20:16
BIDPRN PRN
constipation
Sodium Chloride 0 flush 06/09/24 21:00
Sodium Chloride 0.9% (Flush) Syringe IV 07/07/24 20:59
PER PROTOCOL SUZETTE
Thiamine HCl 100 mg 06/09/24 20:17
Thiamine 100 Mg Tablet PO 07/07/24 20:16
DAILYPRN PRN
supplement
Physical Exam
-
General: Well Developed, Well Nourished, No Apparent Distress and Comfortable
HEENT: Negative Jaundice
Cardiology: S1 and S2
Pulmonary: Clear
GI: Soft
Extremities: No C/C/E and Other (right LE hematoma seems stable based on inked measurement)
Neurology: Other (left eye visual loss)
Labs
Lab Results
WBC 5.4 10^3/uL (4.8-10.8) 06/10/24 06:31
RBC 4.35 10^6/uL (4.70-6.10) L 06/10/24 06:31
Hgb 12.9 g/dL (13.0-18.0) L 06/10/24 06:31
Hct 39.1 % (39.0-52.0) 06/10/24 06:31
MCV 89.9 fL (80.0-94.0) 06/10/24 06:31
MCH 29.7 pg (27.0-31.0) 06/10/24 06:31
MCHC 33.0 g/dL (33.0-37.0) 06/10/24 06:31
RDW 12.4 % (11.5-14.5) 06/10/24 06:31
Plt Count 165 10^3/uL (130-400) 06/10/24 06:31
MPV 10.3 fL (7.4-10.4) 06/10/24 06:31
Abs Immat Gran (auto) 0.0 10^3/uL (0-0.05) 06/10/24 06:31
Absolute Neuts (auto) 3.1 10^3/uL (1.4-6.5) 06/10/24 06:31
Absolute Lymphs (auto) 1.6 10^3/uL (1.2-3.4) 06/10/24 06:31
Absolute Monos (auto) 0.5 10^3/uL (0.1-0.6) 06/10/24 06:31
Absolute Eos (auto) 0.2 10^3/uL (0-0.7) 06/10/24 06:31
Absolute Basos (auto) 0.0 10^3/uL (0-0.2) 06/10/24 06:31
Immature Gran % 0.2 % (0-0.5) 06/10/24 06:31
Neutrophils % 57.1 % (42.2-75.2) 06/10/24 06:31
Lymphocytes % 29.5 % (20.5-51.1) 06/10/24 06:31
Monocytes % 9.0 % (1.7-9.3) 06/10/24 06:31
Eosinophils % 3.6 % (0-6) 06/10/24 06:31
Basophils % 0.6 % (0-2) 06/10/24 06:31
Creatinine 0.6 mg/dL (0.7-1.3) L 06/10/24 06:32
Vital Signs
Vital Signs
Temp Pulse Resp BP Pulse Ox
97.8 F 69 18 109/68 97
06/10/24 03:08 06/10/24 03:08 06/10/24 03:08 06/10/24 03:08 06/10/24 03:08
[2024-06-10 08:02] LABS: Hepatitis C Antibody Negative (Negative)
[2024-06-10] MEDS: PLAQUENIL 200 MG PO ×2 (08:20→20:56)
--- NOTE | 2024-06-10 09:17 | W.PN.HOSP.TC ---
Today's Communication/Plan
-
Neuro consult
MRI brain
result Lovenox as per Dr. Zambrano
Assessment / Plan
Assessment / Plan
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
Patient's Coumadin was converted to Lovenox 80 mg SQ twice daily with aspirin 81 mg added on 05/12/2024 due to above retinal occlusion in April 2024
-Patient follows with Dr. Moreno
#Acute on chronic short-term memory impairment from prior strokes
#Hx 3 cryptogenic CVAs(most recent subarachnoid July 2016, prior embolic strokes)
#Hx antiphospholipid antibody syndrome
-Consult Neurology, consult placed and discussed With Dr. Walton
- MRI brain today
-Check lipid profile on Lipitor: Chol 109/trig 79/HDL 50/LDL 44, HgbA1c
-2D echo recent at [facility] was negative�scanned into chart
-PT/OT consult
-HOLD aspirin 81 mg daily
discussed with Dr. Zambrano: He was on 1 mg/kg SQ Q12 + ASA 81 mg PO QD.
RESUME 0.5 mg/kg tonight 10 pm. If hematoma stable, increase to 1 mg/kg Monday 06/11 10 AM x 1 dose. If remains stable, resume 1 mg/kg SQ Q12 Tuesday 06/12.
Resume ASA 81 mg PO QD on Wednesday 06/13.
#Alcohol use
Drinks daily 2 beers
-Will continue patient's B12
-No concern currently for any possible withdrawal
Admitting doctor was concerned about some degree of confusion
currently pt is showing no signs of confusion. MRI has been ordered and neuro consult has been requested
# HTN-benign
BP 144/82
-Continue amlodipine 2.5 mg at bedtime
#HLD
-Check lipid profile
-Continue atorvastatin 20 mg at bedtime
#BPH
#Chronic difficulty voiding needs to stand and focus per patient
-Bladder scans with protocol
#Schatzki's ring with history of 3 dilations for 2013, 2015, 03/07/2020
-Can now eat regular diet
#Hiatal hernia
#Compression fracture T5
#Neuropathic pain syndrome
-Continue gabapentin 1200 mg p.o. every 8 hours
#Anxiety
Continue nortriptyline 30 mg at bedtime
#Arthritis right knee
Continue hydroxychloroquine 200 mg twice daily
Other PMH:
Erectile dysfunction -hold solifenacin 5 mg at bedtime
diverticulosis,
vitamin D deficiency-continue vitamin D3
DVT prophylaxis
see above anticoag rec
Dr. Avendaño rec change to full admit
complex situation
Full code
Anticipated Discharge: > 48 hours
Subjective/Interval History
-
Date of Service: June 10, 2024
Awake, alert, conversant
Objective Data
-
Labs:
Laboratory Results
06/10/24 06/10/24 06/10/24
02:11 06:31 06:32
WBC 5.4
Hgb 12.7 L 12.9 L
Hct 37.5 L 39.1
Plt Count 165
Sodium 140
Potassium 4.5
Chloride 104
Carbon Dioxide 27
BUN 9
Creatinine 0.6 L
Glucose 102 H
Calcium 8.9
Total Bilirubin 0.8
AST 25
ALT 20
Alkaline Phosphatase 64
06/10/24
13:30
WBC
Hgb Pending
Hct Pending
Plt Count
Sodium
Potassium
Chloride
Carbon Dioxide
BUN
Creatinine
Glucose
Calcium
Total Bilirubin
AST
ALT
Alkaline Phosphatase
Vital Signs:
Vital Signs
Temp Pulse Resp BP Pulse Ox
96.8 F L 72 16 121/76 97
06/10/24 07:00 06/10/24 07:00 06/10/24 07:00 06/10/24 07:00 06/10/24 07:00
I&O
06/09/24 06/10/24 06/11/24
06:59 06:59 06:59
Intake Total 480 / 480
Balance 480 / 480
Review of Systems
-
History Source: Patient
Constitutional: Denies Fever
Respiratory: Reports No Symptoms
Cardiac: Reports No Symptoms; Denies Chest Pain
Abdomen/GI: Reports No Symptoms; Denies Abdominal Pain
Musculoskeletal: Reports Muscle Pain (Rt leg pain in area of hematoma )
Neuro: Reports No Symptoms (Hx of CVA x 3, left sided residual with weakness and paresthesia)
Hematologic / Lymphatic: Reports Bruising (left thigh)
Physical Exam
-
General: Well Developed, Well Nourished and No Apparent Distress
HEENT: Moist Mucous Membranes
Respiratory: Clear to Auscultation; Negative Wheezes, Rales or Rhonchi
Cardiac: Regular Rhythm and S1/S2
GI: Nontender and Nondistended
Musculoskeletal: No Clubbing, No Cyanosis and Other (rt lateral thigh with eccymosis and hematoma, pt states swelling has decreased)
[2024-06-10 11:07] LABS: Glycohemoglobin (HgbA1c) 5.1 % (4.0-5.6)
--- NOTE | 2024-06-10 11:35 | CON.NEURO ---
Addendum entered and electronically signed by Brandy Walton MD 06/10/24 12:38:
A.p: Chronic central post-stroke pain. Lateral medullary nucleus, which is part of the brainstem and plays a crucial role in processing pain signals.
-Continue home dose of gabapentin and nortriptyline
Original Note:
Consultation
Order
Date of Consultation: 06/10/24
Requesting Provider: Kurt Vásquez MD
Reason for Consult: stroke management and treatment safety.
Neurology consultation note
CC: right thigh pain
HPI: This is a 69-year-old right-handed man who presented to [facility] on 06/09/2024 with right thigh pain.
Neurology consultation was requested for management of recurrent strokes and treatment safety.
Mr. Diamond was diagnosed with an acute R medullary stroke stroke in 2013(age 59) after he developed left sided sensory deficits and instability. A second acute infarct was reportedly discovered on brain MRI in 2014.
The third stroke was a 'brain bleed', and the patient was treated at [facility] for 2 weeks. On 05/11/2024 the patient developed an acute left visual loss and was diagnosed with L CRAO. He was Lovenox plus Aspirin before diagnosis of spontaneous right
thigh hematoma on 06/04/2024.
CT head wo contrast(06/09/2024)-chronic left caudate nucleus extending into the left lentiform nucleus, mild atrophy
ER VS: 143/75, 70,afebrile
PDMP:none
Labs: LDL 44. HbA1C 5.1.
JOAQUINA(11/20/13)no PFO, ASA.
PMH: ICH(04/2024), R lateral medullary stroke(11/2023), L CRAO(05/11/2024), Antiphospholipid syndrome, HTN, DLP, strokes, vitamin B12, D deficiency, BPH, h/o Schatzki's ring
PSH:appendectomy, Schatzki's ring dilation x 3
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
FH: Mother from multiple myeloma, father developed cognitive deficits in mid 70, brothers-multiple sclerosis.
All: Demerol
ROS:Constitutional: Negative. Negative for chills, fever and unexpected weight change.
HENT: Negative for ear pain, hearing loss, tinnitus and trouble swallowing.
Eyes: Positive for impaired vision on the left
Respiratory: Negative for cough, choking and shortness of breath.
Cardiovascular: Negative for chest pain, palpitations and leg swelling.
Gastrointestinal: Negative for abdominal pain and vomiting.
Endocrine: Negative. Negative for cold intolerance.
Genitourinary: Positive for urinary urgency
Musculoskeletal: positive for right thigh pain
Skin: Negative for rash.
Allergic/Immunologic: Negative. Negative for immunocompromised state.
Neurological: Positive for imbalance, left hemisensory deficit
Psychiatric/Behavioral: Positive for change in cognition
General: Well developed. In no acute distress.
Cardio: Regular rate and rhythm without murmur. Extremities are without cyanosis or edema.
Neuro:
Mental Status: Alert, oriented to person, place, and date. Able to do serial sevens good fund of knowledge. Follows complex requests across the midline. Comprehension, naming, and repetition intact. Immediate and delayed recall 3/3.
Cranial Nerves: . Pupils are equally round and reactive to light. EOMs full. Visual andres full to confrontation. L ptosis. No nystagmus. V1-V3 intact to light touch and pinprick bilaterally, symmetric. Face symmetric. Normal hearing AU. The
palate elevated well. SCMs and traps 5/5. Tongue midline. No dysarthria. Mild hypophonia
Motor: Normal bulk and tone. No pronator or arm drift. Strength 5/5 throughout, except for mild left hemiparesis. No clonus.
Reflexes: 0+ throughout the upper extremities and 0 knees. 0/2 in AJs. Plantar responses flexor bilaterally.
Sensory: Absent vibration at the toes and impaired at the ankles
Coordination: No dysmetria or tremor.
Gait: deferred
BL hammer toes
Assessment and Plan:
I. Subacute L CRAO
II. History of ICH(unclear location), R PICA stroke(2014), Antiphospholipid syndrome
III. 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
IV. Cognitive complaints.
V. Family history of dementia and multiple sclerosis
-Fall precautions
-Please check vitamin B12, folate, ESR/CRP, SPEP/IF
-Continue thiamine 100 mg once a day
-Please obtain medical records from patient's neurologist for review
-Would defer systemic anticoagulation timing decision to hematology team
-OP Driving safety evaluation
-Please obtain medical records from patient's neurologist for review
-OP NCS/EMG
-PT
-Please recall neurology service with any questions or concerns.
I personally reviewed all radiology and labs along with past medical records pertinent to current medical problems. Total time spent in patient care is 60 minutes.
Thank you for allowing us to participate in the care of this patient. We will continue to follow. Please do not hesitate to contact us with any questions or concerns.
Subjective/Objective
Subjective Data
Date of Service: June 10, 2024
Objective Data
Vital Signs
Temp Pulse Resp BP Pulse Ox
36.6 C 75 16 112/72 96
06/10/24 11:00 06/10/24 11:00 06/10/24 11:00 06/10/24 11:00 06/10/24 11:00
Lab Results
06/10/24 06:32
Sodium 140 mmol/L (135-145) 06/10/24 06:32
Potassium 4.5 mmol/L (3.5-5.1) 06/10/24 06:32
BUN 9 mg/dl (9-20) 06/10/24 06:32
Glucose 102 mg/dl (70-99) H 11/23/24 06:32
Calcium 8.9 mg/dl (8.4-10.2) 06/10/24 06:32
LDL Cholesterol, Calc 44 mg/dl 06/10/24 06:32
Patient Allergies
meperidine HCl [From Demerol] Allergy (Verified 06/09/24 12:28)
'severe vomiting'
Medications
-
Active Medications
Generic Name Dose Route Start Last Admin
Trade Name Freq PRN Reason Stop Dose Admin
Acetaminophen 650 mg 06/09/24 20:17
Acetaminophen 325 Mg Tablet PO 07/07/24 20:16
Q4HPRN PRN
mild pain/GARCIA/temp> 100.4F
Amlodipine Besylate 2.5 mg 06/09/24 22:00 06/09/24 21:51
Amlodipine 2.5 Mg Tablet PO 07/07/24 21:59 2.5 mg
HS SUZETTE Administration
Atorvastatin Calcium 20 mg 06/09/24 22:00 06/09/24 21:51
Atorvastatin (Lipitor) 20 Mg Tablet PO 07/07/24 21:59 20 mg
HS SUZETTE Administration
Bisacodyl 10 mg 06/09/24 20:17
Bisacodyl 10 Mg Rectal Suppository RECTAL 07/07/24 20:16
[id number] PRN
constipation
Cholecalciferol 125 mcg 06/09/24 20:17
Cholecalciferol (Vitamin D3) 125 Mcg Tablet (5,000 Units) PO 07/07/24 20:16
DAILYPRN PRN
supplement
Cyanocobalamin 1,000 mcg 06/09/24 20:17
Cyanocobalamin 1,000 Mcg Tablet PO 07/07/24 20:16
DAILYPRN PRN
Supplement
Enoxaparin Sodium 45 mg 06/10/24 22:00
Enoxaparin Sodium 60 Mg/0.6 Ml Syringe SC 07/08/24 21:59
QPM SUZETTE
Gabapentin 1,200 mg 06/10/24 00:00 06/10/24 08:20
Gabapentin 400 Mg Capsule PO 07/08/24 00:00 1,200 mg
Q8 SUZETTE Administration
Hydroxychloroquine Sulfate 200 mg 06/09/24 20:17 06/10/24 08:20
Hydroxychloroquine 200 Mg Tablet PO 07/07/24 20:16 200 mg
BID SUZETTE Administration
Nortriptyline HCl 30 mg 06/09/24 22:00 06/09/24 21:51
Nortriptyline 10 Mg Capsule PO 07/07/24 21:59 30 mg
HS SUZETTE Administration
Ondansetron HCl 4 mg 06/09/24 18:11
Ondansetron 4 Mg/2 Ml Vial IV 07/07/24 18:10
Q6HPRN PRN
NAUSEA/VOMITING
Oxycodone HCl 5 mg 06/09/24 20:17
Oxycodone 5 Mg Regular Release Tablet PO 06/23/24 20:16
Q4HPRN PRN
moderate pain
Oxycodone HCl 10 mg 06/09/24 20:17
Oxycodone 10 Mg Regular Release Tablet PO 06/23/24 20:16
Q4HPRN PRN
severe pain
Polyethylene Glycol 17 grams 06/09/24 20:17
Polyethylene Glycol Powder 17 Grams Packet PO 07/07/24 20:16
DAILYPRN PRN
constipation
Senna/Docusate Sodium 1 tablet 06/09/24 20:17
Docusate W/Senna (Jodi-Colace) Tablet PO 07/07/24 20:16
BIDPRN PRN
constipation
Sodium Chloride 0 flush 06/09/24 21:00
Sodium Chloride 0.9% (Flush) Syringe IV 07/07/24 20:59
PER PROTOCOL SUZETTE
Thiamine HCl 100 mg 06/09/24 20:17
Thiamine 100 Mg Tablet PO 07/07/24 20:16
DAILYPRN PRN
supplement
Home Medications
�Medication �Instructions �Recorded
hydroxychloroquine 200 mg tablet 200 mg PO BID ARTHRITIS 02/11/16
nortriptyline 10 mg capsule 30 mg PO HS mental health 02/11/16
atorvastatin 20 mg tablet 20 mg PO HS High cholesterol 08/06/19
cyanocobalamin (vitamin B-12) 1,000 mcg PO DAILYPRN PRN 03/04/20
1,000 mcg tablet Supplement
solifenacin 5 mg tablet 5 mg PO HS Urinary issue 03/04/20
thiamine HCl (vitamin B1) 100 mg 100 mg PO DAILYPRN PRN supplement 03/04/20
tablet
Aspir-81 81 mg PO HS 06/09/24
amlodipine 2.5 mg tablet 2.5 mg PO HS 06/09/24
cholecalciferol (vitamin D3) 125 125 mcg PO DAILYPRN PRN supplement 06/09/24
mcg (5,000 unit) tablet
enoxaparin 80 mg/0.8 mL 80 mg SC BID 06/09/24
subcutaneous syringe
gabapentin 600 mg tablet 1,200 mg PO Q8 06/09/24
Vital Signs and Labs
-
Vital Signs and Labs:
Vital Signs
Temp Pulse Resp BP Pulse Ox
36.6 C 75 16 112/72 96
06/10/24 11:00 06/10/24 11:00 06/10/24 11:00 06/10/24 11:00 06/10/24 11:00
Lab Results
06/10/24 06:32
Sodium 140 mmol/L (135-145) 06/10/24 06:32
Potassium 4.5 mmol/L (3.5-5.1) 06/10/24 06:32
BUN 9 mg/dl (9-20) 06/10/24 06:32
Glucose 102 mg/dl (70-99) H 06/10/24 06:32
Calcium 8.9 mg/dl (8.4-10.2) 06/10/24 06:32
LDL Cholesterol, Calc 44 mg/dl 06/10/24 06:32
Medications
-
Medications:
Generic Name Dose Route Start Last Admin
Trade Name Freq PRN Reason Stop Dose Admin
Acetaminophen 650 mg 06/09/24 20:17
Acetaminophen 325 Mg Tablet PO 07/07/24 20:16
Q4HPRN PRN
mild pain/GARCIA/temp> 100.4F
Amlodipine Besylate 2.5 mg 06/09/24 22:00 06/09/24 21:51
Amlodipine 2.5 Mg Tablet PO 07/07/24 21:59 2.5 mg
HS SUZETTE Administration
Atorvastatin Calcium 20 mg 06/09/24 22:00 06/09/24 21:51
Atorvastatin (Lipitor) 20 Mg Tablet PO 07/07/24 21:59 20 mg
HS SUZETTE Administration
Bisacodyl 10 mg 06/09/24 20:17
Bisacodyl 10 Mg Rectal Suppository RECTAL 07/07/24 20:16
[id number] PRN
constipation
Cholecalciferol 125 mcg 06/09/24 20:17
Cholecalciferol (Vitamin D3) 125 Mcg Tablet (5,000 Units) PO 07/07/24 20:16
DAILYPRN PRN
supplement
Cyanocobalamin 1,000 mcg 06/09/24 20:17
Cyanocobalamin 1,000 Mcg Tablet PO 07/07/24 20:16
DAILYPRN PRN
Supplement
Enoxaparin Sodium 45 mg 06/10/24 22:00
Enoxaparin Sodium 60 Mg/0.6 Ml Syringe SC 07/08/24 21:59
QPM SUZETTE
Gabapentin 1,200 mg 06/10/24 00:00 06/10/24 08:20
Gabapentin 400 Mg Capsule PO 07/08/24 00:00 1,200 mg
Q8 SUZETTE Administration
Hydroxychloroquine Sulfate 200 mg 06/09/24 20:17 06/10/24 08:20
Hydroxychloroquine 200 Mg Tablet PO 07/07/24 20:16 200 mg
BID SUZETTE Administration
Nortriptyline HCl 30 mg 06/09/24 22:00 06/09/24 21:51
Nortriptyline 10 Mg Capsule PO 07/07/24 21:59 30 mg
HS SUZETTE Administration
Ondansetron HCl 4 mg 06/09/24 18:11
Ondansetron 4 Mg/2 Ml Vial IV 07/07/24 18:10
Q6HPRN PRN
NAUSEA/VOMITING
Oxycodone HCl 5 mg 06/09/24 20:17
Oxycodone 5 Mg Regular Release Tablet PO 06/23/24 20:16
Q4HPRN PRN
moderate pain
Oxycodone HCl 10 mg 06/09/24 20:17
Oxycodone 10 Mg Regular Release Tablet PO 06/23/24 20:16
Q4HPRN PRN
severe pain
Polyethylene Glycol 17 grams 06/09/24 20:17
Polyethylene Glycol Powder 17 Grams Packet PO 07/07/24 20:16
DAILYPRN PRN
constipation
Senna/Docusate Sodium 1 tablet 06/09/24 20:17
Docusate W/Senna (Jodi-Colace) Tablet PO 07/07/24 20:16
BIDPRN PRN
constipation
Sodium Chloride 0 flush 06/09/24 21:00
Sodium Chloride 0.9% (Flush) Syringe IV 07/07/24 20:59
PER PROTOCOL SUZETTE
Thiamine HCl 100 mg 06/09/24 20:17
Thiamine 100 Mg Tablet PO 07/07/24 20:16
DAILYPRN PRN
supplement
Home Medications
-
Home Medications
hydroxychloroquine 200 mg tablet 200 mg PO BID ARTHRITIS 02/11/16
nortriptyline 10 mg capsule 30 mg PO HS mental health 02/11/16
atorvastatin 20 mg tablet 20 mg PO HS High cholesterol 08/06/19
cyanocobalamin (vitamin B-12) 1,000 mcg tablet 1,000 mcg PO DAILYPRN PRN Supplement 03/04/20
solifenacin 5 mg tablet 5 mg PO HS Urinary issue 03/04/20
thiamine HCl (vitamin B1) 100 mg tablet 100 mg PO DAILYPRN PRN supplement 03/04/20
Aspir-81 81 mg PO HS 06/09/24
amlodipine 2.5 mg tablet 2.5 mg PO HS 06/09/24
cholecalciferol (vitamin D3) 125 mcg (5,000 unit) tablet 125 mcg PO DAILYPRN PRN supplement 06/09/24
enoxaparin 80 mg/0.8 mL subcutaneous syringe 80 mg SC BID 06/09/24
gabapentin 600 mg tablet 1,200 mg PO Q8 06/09/24
[2024-06-10 14:38] LABS: Hematocrit 40.7 % (39.0-52.0); Hemoglobin 13.2 g/dL (13.0-18.0)
[2024-06-10 14:48] LABS: Erythrocyte Sed Rate 21 mm/hour (0-20)
--- NOTE | 2024-06-10 15:38 | CM ---
Reviewed chart, met with patient to obtain information for assessment. Patient stated that he lives with his spouse in an old farm house, all one level with one step to enter. Patient described himself as independent with his ADLs, personal care,
dressing and bathing. 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 Patient can drive and can get himself to his appointments and do all of his own shopping. He denied any DME with exception of a raised toilet seat.
He has no VN services.
He has never been to a SNF.
Patient has a prescription plan and uses, [facility] in [place] for all of his medications.
Patient's PCP is, Kurt Thornton.
Patient signed LAYNE letter.
He feels that functionally he is at baseline and would like to return home when medically stable.
Plan: Case management will continue to follow and assist with discharge planning. Home when cleared for discharge.
[2024-06-10] MEDS: NORVASC 2.5 MG PO (20:56)
[2024-06-10] MEDS: PAMELOR 30 MG PO (20:57)
[2024-06-10] MEDS: LIPITOR 20 MG PO (20:57)
[2024-06-10] MEDS: LOVENOX 45 MG SC (20:57)
--- NOTE | 2024-06-10 23:40 | PTCARENOTE ---
assumed care of patient at approx 2300, pt offers no complaints, NSR on telemetry. call pablo within reach, able to make needs known.
[2024-06-11] VITALS (7 sets, daily range): BP systolic 124–143; BP diastolic 74–86
[2024-06-11 02:27] LABS: Amphetamines Negative (Negative); Barbiturates Negative (Negative); Benzodiazepines Negative (Negative); Buprenorphine Negative (Negative); Cocaine Negative (Negative); Marijuana Positive (Negative); Methadone Negative (Negative); Methamphetamines Negative (Negative); Opiates Negative (Negative); Phencyclidine Negative (Negative); Tricyclic Antidepressants Positive (Negative)
[2024-06-11 02:39] LABS: Fentanyl, Urine Negative (Negative)
[2024-06-11] MEDS: ROXICODONE 5 MG PO ×2 (04:16→21:01)
[2024-06-11 06:22] LABS: Hematocrit 40.5 % (39.0-52.0); Hemoglobin 13.8 g/dL (13.0-18.0)
--- NOTE | 2024-06-11 06:23 | W.PN.ONC2 ---
Today's Communication / Plan
-
See Lovenox step up plan. Monitor for drop in HgB or worsening right leg hematoma. I suppose if HgB remains stable, he can be discharged tomorrow (Wednesday) to continue step as outpatient as HgB is stable and if it remains so.
Impression
Impression
Antiphospholipid antibody syndrome with history of 3 cryptogenic strokes
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
Spontaneous right leg hematoma while on anticoagulation
Plan
Plan
CT RLE showing extension hematoma without signs of limb threatening ischemia/compartment syndrome.
Held Lovenox & aspirin for 24 hours.
Resumed last night as VERY HIGH RISK if he remains off A/C too long.
He was on 1 mg/kg SQ Q12 + ASA 81 mg PO QD.
RESUMED 0.5 mg/kg last night 10 pm. As hematoma stable, plan for today is to increase to 1 mg/kg Monday 06/11 10 AM x 1 dose. If remains stable, resume 1 mg/kg SQ Q12 Tuesday 06/12.
Resume ASA 81 mg PO QD on Wednesday 06/13.
Subjective/Objective
Chief Complaint
ACS Heme Onc
Subjective
No changes. Right lateral leg pain at site of hematoma. No progression. No change in neuro - no new symptoms.
Vital Signs:
Vital Signs
Temp Pulse Resp BP Pulse Ox
98.3 F 118 18 137/74 98
06/11/24 03:00 06/11/24 04:14 06/11/24 03:00 06/11/24 04:14 06/11/24 03:00
Lab Results:
Laboratory Data
WBC 5.4 10^3/uL (4.8-10.8) 06/10/24 06:31
Hgb 13.8 g/dL (13.0-18.0) 06/11/24 06:00
Plt Count 165 10^3/uL (130-400) 06/10/24 06:31
eGFR > 60.00 06/10/24 06:32
Physical Exam
Cardiology: S1 and S2
Pulmonary: Clear
GI: Soft
Extremities: No C/C/E and Other (right lateral hematoma seems stable)
[2024-06-11] MEDS: NEURONTIN 1200 MG PO ×2 (07:49→16:20)
[2024-06-11] MEDS: PLAQUENIL 200 MG PO ×2 (07:49→21:02)
[2024-06-11] MEDS: LOVENOX 90 MG SC (12:55)
[2024-06-11 13:54] LABS: Hematocrit 41.1 % (39.0-52.0); Hemoglobin 13.6 g/dL (13.0-18.0)
--- NOTE | 2024-06-11 14:16 | W.PN.HOSP.TC ---
Today's Communication/Plan
-
slow increase of Lovenox
Assessment / Plan
Assessment / Plan
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
Patient's Coumadin was converted to Lovenox 80 mg SQ twice daily with aspirin 81 mg added on 05/12/2024 due to above retinal occlusion in April 2024
-Patient follows with Dr. Moreno
#Acute on chronic short-term memory impairment from prior strokes
#Hx 3 cryptogenic CVAs(most recent subarachnoid July 2016, prior embolic strokes)
#Hx antiphospholipid antibody syndrome
-Consult Neurology, consult placed and discussed With Dr. Walton
- MRI brain: Small nonhemorrhagic acute/subacute cerebellar vermis infarct.
-Check lipid profile on Lipitor: Chol 109/trig 79/HDL 50/LDL 44, HgbA1c 5.1%
-2D echo recent at [facility] was negative�scanned into chart
-PT/OT consult
-HOLD aspirin 81 mg daily
discuss[address] with Dr. Zambrano: He was on 1 mg/kg SQ Q12 + ASA 81 mg PO QD.
RESUME 0.5 mg/kg tonight 10 pm. If hematoma stable, increase to 1 mg/kg Monday 06/11 10 AM x 1 dose. If remains stable, resume 1 mg/kg SQ Q12 Tuesday 06/12.
Resume ASA 81 mg PO QD on Wednesday 06/13. Pt had formerly been on 80 mg bid (1mg/kg bid would be 90 mg bid), based on clinical aspects, Dr. Zambrano prefers resumption of the 80 mg bid and not uptitrating the dose
#Alcohol use
Drinks daily 2 beers
-Will continue patient's B12
-No concern currently for any possible withdrawal
Admitting doctor was concerned about some degree of confusion
currently pt is showing no signs of confusion.
# HTN-benign
BP 144/82
-Continue amlodipine 2.5 mg at bedtime
#HLD
-Check lipid profile
-Continue atorvastatin 20 mg at bedtime
#BPH
#Chronic difficulty voiding needs to stand and focus per patient
-Bladder scans with protocol
#Schatzki's ring with history of 3 dilations for 2013, 2015, 03/07/2020
-Can now eat regular diet
#Hiatal hernia
#Compression fracture T5
#Neuropathic pain syndrome
-Continue gabapentin 1200 mg p.o. every 8 hours
#Anxiety
Continue nortriptyline 30 mg at bedtime
#Arthritis right knee
Continue hydroxychloroquine 200 mg twice daily
Other PMH:
Erectile dysfunction -hold solifenacin 5 mg at bedtime
diverticulosis,
vitamin D deficiency-continue vitamin D3
DVT prophylaxis
see above anticoag rec
Dr. Avendaño rec change to full admit
complex situation
reviewed with at bedside 06/11, extensive discussion
Full code
Anticipated Discharge: 24 - 48 hours
Subjective/Interval History
-
Date of Service: June 11, 2024
Awake, alert, conversant
Objective Data
-
Labs:
Laboratory Results
06/11/24 06/11/24
06:00 13:38
Hgb 13.8 13.6
Hct 40.5 41.1
Vital Signs:
Vital Signs
Temp Pulse Resp BP Pulse Ox
98 F 81 16 136/79 99
06/11/24 11:00 06/11/24 11:00 06/11/24 11:00 06/11/24 11:00 06/11/24 11:00
I&O
06/10/24 06/11/24 06/12/24
06:59 06:59 06:59
Intake Total 480 / 480 480 / 480
Balance 480 / 480 480 / 480
Review of Systems
-
History Source: Patient
Constitutional: Denies Fever
Respiratory: Reports No Symptoms
Cardiac: Reports No Symptoms; Denies Chest Pain
Abdomen/GI: Reports No Symptoms; Denies Abdominal Pain
Musculoskeletal: Reports Muscle Pain (Rt leg pain in area of hematoma )
Neuro: Reports No Symptoms (Hx of CVA x 3, left sided residual with weakness and paresthesia)
Hematologic / Lymphatic: Reports Bruising (left thigh)
Physical Exam
-
General: Well Developed, Well Nourished and No Apparent Distress
HEENT: Moist Mucous Membranes
Respiratory: Clear to Auscultation; Negative Wheezes, Rales or Rhonchi
Cardiac: Regular Rhythm and S1/S2
GI: Nontender and Nondistended
Musculoskeletal: No Clubbing, No Cyanosis and Other (rt lateral thigh with eccymosis and hematoma, pt states swelling has decreased, remains tender)
Neuro: Awake, Alert, Oriented and Other (walking well with walker, not quite at baseline)
[2024-06-11] MEDS: LIPITOR 20 MG PO (21:02)
[2024-06-11] MEDS: PAMELOR 30 MG PO (21:02)
[2024-06-11] MEDS: NORVASC 2.5 MG PO (21:02)
[2024-06-12] MEDS: NEURONTIN 1200 MG PO ×2 (00:10→07:45)
[2024-06-12 03:10] VITALS: BP 125/77
[2024-06-12 07:22] VITALS: BP 110/73
[2024-06-12] MEDS: PLAQUENIL 200 MG PO (07:46)
[2024-06-12 07:57] LABS: Hematocrit 39.9 % (39.0-52.0); Hemoglobin 13.1 g/dL (13.0-18.0); Mean Corp Hgb Conc. 32.8 g/dL (33.0-37.0); Mean Corpuscular Hgb 29.7 pg (27.0-31.0); Mean Corpuscular Volume 90.5 fL (80.0-94.0); Mean Platelet Volume 9.9 fL (7.4-10.4); Platelet Count 141 10^3/uL (130-400); Red Blood Cell Count 4.41 10^6/uL (4.70-6.10); Red Cell Dist. Width 12.6 % (11.5-14.5); White Blood Cell Count 4.5 10^3/uL (4.8-10.8)
[2024-06-12 10:49] VITALS: BP 121/75
[2024-06-12] MEDS: LOVENOX 80 MG SC (10:49)
--- NOTE | 2024-06-12 13:05 | W.PN.HOSP.TC ---
Today's Communication/Plan
-
dc to home
Assessment / Plan
Assessment / Plan
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
Patient's Coumadin was converted to Lovenox 80 mg SQ twice daily with aspirin 81 mg added on 05/12/2024 due to above retinal occlusion in April 2024
-Patient follows with Dr. Moreno
#Acute on chronic short-term memory impairment from prior strokes
#Hx 3 cryptogenic CVAs(most recent subarachnoid July 2016, prior embolic strokes)
#Hx antiphospholipid antibody syndrome
-Consult Neurology, consult placed and discussed With Dr. Walton
- MRI brain: Small nonhemorrhagic acute/subacute cerebellar vermis infarct.
-Check lipid profile on Lipitor: Chol 109/trig 79/HDL 50/LDL 44, HgbA1c 5.1%
-2D echo recent at [facility] was negative�scanned into chart
-PT/OT consult
-HOLD aspirin 81 mg daily
discuss[address] with Dr. Zambrano: He was on 1 mg/kg SQ Q12 + ASA 81 mg PO QD.
RESUME 0.5 mg/kg tonight 10 pm. If hematoma stable, increase to 1 mg/kg Monday 06/11 10 AM x 1 dose. If remains stable, resume 1 mg/kg SQ Q12 Tuesday 06/12.
Resume ASA 81 mg PO QD on Wednesday 06/13. Pt had formerly been on 80 mg bid (1mg/kg bid would be 90 mg bid), based on clinical aspects, Dr. Zambrano prefers resumption of the 80 mg bid and not uptitrating the dose
#Alcohol use
Drinks daily 2 beers
-Will continue patient's B12
-No concern currently for any possible withdrawal
Admitting doctor was concerned about some degree of confusion
currently pt is showing no signs of confusion.
# HTN-benign
BP 144/82
-Continue amlodipine 2.5 mg at bedtime
#HLD
-Continue atorvastatin 20 mg at bedtime
#BPH
#Chronic difficulty voiding needs to stand and focus per patient
-Bladder scans with protocol
#Schatzki's ring with history of 3 dilations for 2013, 2015, 03/07/2020
-Can now eat regular diet
#Hiatal hernia
#Compression fracture T5
#Neuropathic pain syndrome
-Continue gabapentin 1200 mg p.o. every 8 hours
#Anxiety
Continue nortriptyline 30 mg at bedtime
#Arthritis right knee
Continue hydroxychloroquine 200 mg twice daily, pt does not know why he is still on this medication. Recommended he follow up with the prescribing doctor to see if he still needs this medication
Other PMH:
Erectile dysfunction -hold solifenacin 5 mg at bedtime
diverticulosis,
vitamin D deficiency-continue vitamin D3
DVT prophylaxis
see above anticoag rec
Dr. Avendaño rec change to full admit
complex situation
reviewed with at bedside 06/12, extensive discussion
dc to home
see dictated note
More than 30 minutes spent in discharge including
Final examination of the patient
Summarizing hospital stay
Instructions for continuing care to all relevant caregivers
Preparation of discharge records, prescriptions, and referral forms
Total time spent (in minutes): 45
Full code
Anticipated Discharge: Today
Subjective/Interval History
-
Date of Service: June 12, 2024
generally feeling better
Objective Data
-
Labs:
Laboratory Results
06/12/24
07:24
WBC 4.5 L
Hgb 13.1
Hct 39.9
Plt Count 141
Vital Signs:
Vital Signs
Temp Pulse Resp BP Pulse Ox
97.9 F 80 17 121/75 96
06/12/24 10:49 06/12/24 10:49 06/12/24 10:49 06/12/24 10:49 06/12/24 10:49
I&O
06/11/24 06/12/24 06/13/24
06:59 06:59 06:59
Intake Total 480 / 480 900 / 900
Balance 480 / 480 900 / 900
Review of Systems
-
History Source: Patient
Constitutional: Denies Fever
Respiratory: Reports No Symptoms
Cardiac: Reports No Symptoms; Denies Chest Pain
Abdomen/GI: Reports No Symptoms; Denies Abdominal Pain
Musculoskeletal: Reports Muscle Pain (Rt leg pain in area of hematoma )
Neuro: Reports No Symptoms (Hx of CVA x 3, left sided residual with weakness and paresthesia, at baseline)
Hematologic / Lymphatic: Reports Bruising (left thigh)
Physical Exam
-
General: Well Developed, Well Nourished and No Apparent Distress
HEENT: Moist Mucous Membranes
Respiratory: Clear to Auscultation; Negative Wheezes, Rales or Rhonchi
Cardiac: Regular Rhythm and S1/S2
GI: Nontender and Nondistended
Musculoskeletal: No Clubbing, No Cyanosis and Other (rt lateral thigh with eccymosis and hematoma, pt states swelling has decreased, remains tender)
Neuro: Awake, Alert, Oriented and Other (walking well with walker, not quite at baseline)
--- NOTE | 2024-06-12 13:26 | W.DS.TRANS ---
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
-
Discharge Instructions:
Discharge Diagnosis/Procedures Factor V Leiden Deficiency, Rt leg hematoma
Diet Regular
Activity No strenuous activity
Driving Restrictions As prior to admission
Bathing Restrictions None
Instructions:
Stand-Alone Forms:
Changes to Home Medications: No
Discharge Medications:
DC Medications w/original date entered in [employer]
hydroxychloroquine 200 mg tablet 200 mg PO BID ARTHRITIS 02/11/16
nortriptyline 10 mg capsule 30 mg PO HS mental health 02/11/16
atorvastatin 20 mg tablet 20 mg PO HS High cholesterol 08/06/19
cyanocobalamin (vitamin B-12) 1,000 mcg tablet 1,000 mcg PO DAILYPRN PRN Supplement 03/04/20
solifenacin 5 mg tablet 5 mg PO HS Urinary issue 03/04/20
thiamine HCl (vitamin B1) 100 mg tablet 100 mg PO DAILYPRN PRN supplement 03/04/20
amlodipine 2.5 mg tablet 2.5 mg PO HS Blood Pressure 06/09/24
cholecalciferol (vitamin D3) 125 mcg (5,000 unit) tablet 125 mcg PO DAILYPRN PRN supplement 06/09/24
enoxaparin 80 mg/0.8 mL subcutaneous syringe 80 mg SC BID Blood Clot Prevention/Tx 06/09/24
gabapentin 600 mg tablet 1,200 mg PO Q8 NEUROPATHY 06/09/24
aspirin 81 mg chewable tablet (Elsa Chewable Low Dose Aspirin) 81 mg PO DAILY #30 tabs 06/12/24
Home Medication Changes
Pending Results: No
[2024-06-12 14:19] VITALS: BP 127/75
--- NOTE | 2024-06-12 20:19 | W.PN.ONC2 ---
Today's Communication / Plan
-
Okay for D/C.
F/U in office within one month, may see [employer] INTERCEPT CONTROLLER, we will arrange.
Impression
Impression
Antiphospholipid antibody syndrome with history of 3 cryptogenic strokes
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
Spontaneous right leg hematoma while on anticoagulation
Plan
Plan
CT RLE showing extension hematoma without signs of limb threatening ischemia/compartment syndrome.
Tolerating Lovenox 1 mg/kg Q12.
Plan is to add aspirin 81 mg beginning tomorrow.
Okay for d/c today.
Schedule office follow up within the next month
Subjective/Objective
Chief Complaint
Heme/Onc follow up of spontaneous hematoma, APLA
Subjective
No increase in pain from hematoma.
Vital Signs:
Vital Signs
Temp Pulse Resp BP Pulse Ox
98.4 F 83 17 127/75 97
06/12/24 14:19 06/12/24 14:19 06/12/24 14:19 06/12/24 14:19 06/12/24 14:19
Lab Results:
Laboratory Data
WBC 4.5 10^3/uL (4.8-10.8) L 06/12/24 07:24
Hgb 13.1 g/dL (13.0-18.0) 06/12/24 07:24
Plt Count 141 10^3/uL (130-400) 06/12/24 07:24
eGFR > 60.00 06/10/24 06:32
Physical Exam
Awake, alert, non-toxic
[2024-06-13 18:10] LABS: Albumin 3.86 g/dL (3.75-5.01); Alpha 2 Globulin 0.61 g/dL (0.48-1.05); SPEP IFE Reflex Not Done; Total Protein-Electrophoresis 6.6 g/dL (6.3-8.2)
== END 2024-06-12 14:33 | disposition home or self-care (01) | DRG 815 ==
LOC: 3 WEST ACU 09:46
PROVIDERS: Clinical Nurse Specialist Family Health; Nurse Practitioner; ADMITTING PHYSICIAN Hospitalist; ATTENDING PHYSICIAN Internal Medicine; CONSULT PHYSICIAN Internal Medicine Hematology & Oncology; CONSULT PHYSICIAN Psychiatry & Neurology Neurology; EMERGENCY PHYSICIAN Emergency Medicine; FAMILY PHYSICIAN Family Medicine
DX: D68.61 Antiphospholipid syndrome (principal); H34.12 Central retinal artery occlusion, left eye; M48.54XA Collapsed vertebra, not elsewhere classified, thoracic region, initial encounter for fracture; S70.11XA Contusion of right thigh, initial encounter; E78.00 Pure hypercholesterolemia, unspecified; I10 Essential (primary) hypertension; M79.81 Nontraumatic hematoma of soft tissue; K22.2 Esophageal obstruction; H54.62 Unqualified visual loss, left eye, normal vision right eye; K44.9 Diaphragmatic hernia without obstruction or gangrene; F10.90 Alcohol use, unspecified, uncomplicated; R41.0 Disorientation, unspecified; X58.XXXA Exposure to other specified factors, initial encounter; N40.0 Benign prostatic hyperplasia without lower urinary tract symptoms; N52.9 Male erectile dysfunction, unspecified; N31.9 Neuromuscular dysfunction of bladder, unspecified; K57.30 Diverticulosis of large intestine without perforation or abscess without bleeding; E55.9 Vitamin D deficiency, unspecified; F41.9 Anxiety disorder, unspecified; M17.11 Unilateral primary osteoarthritis, right knee; G62.9 Polyneuropathy, unspecified; Z86.73 Personal history of transient ischemic attack (TIA), and cerebral infarction without residual deficits; Z79.01 Long term (current) use of anticoagulants; Z80.7 Family history of other malignant neoplasms of lymphoid, hematopoietic and related tissues; Z82.0 Family history of epilepsy and other diseases of the nervous system; Z81.8 Family history of other mental and behavioral disorders
CPT/HCPCS: 70450; 70551; 73706; 80053; 80061; 80306; 80307; 83036; 84155; 84165; 85014; 85018; 85025; 85027; 85652; 86140; 86803; 86850; 86900; 86901; 93005; 93880; 97162; 97166; 97530; 99285; Q9967

== ENCOUNTER 2024-08-25 06:34 | Emergency (ER) | payer BC, SELFPAY ==
[2024-08-25 06:47] VITALS: BP 101/66
[2024-08-25] MEDS: ZOFRAN 4 MG IV (07:16)
[2024-08-25] MEDS: MORPHINE SULFATE 4 MG IV ×2 (07:16→11:18)
[2024-08-25 08:00] VITALS: BP 109/79
[2024-08-25 08:11] VITALS: BMI 24.1
[2024-08-25 09:00] VITALS: BP 120/72
--- NOTE | 2024-08-25 09:07 | ED.GENMED ---
History of Present Illness
General
Chief Complaint: Fall
Source: patient and spouse
Time Seen by Provider: 08/25/24 06:59
History of Present Illness
History of Present Illness:
69-year-old male with a history of antiphospholipid antibody syndrome on Lovenox daily (anticoagulant dose) who presents after a fall. The patient states he fell last night. He bent over in the garden and fell over striking his left side on a
rock. For severe pain to left chest around the left areola. Patient denies head injury. No low back pain. No numbness or tingling. Patient denies being short of breath. Just reports it hurts a lot to breathe. Spouse states that the patient
has had intracranial hemorrhages in the past and was concerned about brain bleeding as well
Past History
Past History
ED Past Medical History: CVA, HTN, Hypercholesterolemia and Other (Schatzi's ring, antiphospholipid antibody syndrome on Coumadin with 3 cryptogenic CVAs in the past, intracranial hemorrhage)
ED Past Surgical History: Appendectomy
Social History
Tobacco: Non-smoker
Alcohol: Occasional
Drug: None
Personal:
Living: with family
Employment: Employed
Family History
Family History: Other (Noncontributory)
Phy Exam
Physical Exam
Physical Exam:
CONSTITUTIONAL Patient alert and oriented to person, place and time. Moderate to severe pain distress. Vital signs reviewed.
HEAD atraumatic, normocephalic.
EYES eyelids normal to inspection, Extraocular muscles intact, Conjunctiva normal, Sclera normal.
NECK normal range of motion, Trachea midline, no jugular venous distention.
RESPIRATORY CHEST No respiratory distress noted, Chest expansion equal, Bilateral breath sounds clear. Moderate left chest wall tenderness but equal breath sounds
CARDIOVASCULAR regular rate and rhythm, Heart sounds normal.
ABDOMEN abdomen nontender, Bowel sounds normal. No distention. Left upper quadrant nontender. Discoloration around the umbilicus from injections (Lovenox)
BACK normal inspection, no obvious deformities
UPPER EXTREMITY range of motion normal, Motor strength normal, no cyanosis, no edema.
LOWER EXTREMITY range of motion normal, Motor strength normal, no cyanosis, no edema.
NEURO Speech normal, No focal motor deficits, Andres coma scale 15, Memory normal, Cranial Nerves intact to screening exam.
SKIN skin warm, dry, and normal in color.
Course
Orders/Labs/Results
Orders:
Orders
08/25/24 07:02
CT Chest W/o Iv Contrast Urgent
Comment:
Reason For Exam: fall, L sided pain
08/25/24 07:03
CT Head W/o Iv Contrast Urgent
Comment:
Reason For Exam: fall, anticoagulated
Morphine Sulfate 4 mg IV NOW STA
Ondansetron Injectable [Zofran] 4 mg IV NOW STA
08/25/24 11:08
Complete Blood Count/With Diff Urgent
Comprehensive Metabolic Panel Urgent
PTT Urgent
Prothrombin Time Urgent
08/25/24 11:16
Morphine Sulfate 4 mg .ROUTE .STK-MED ONE
08/25/24 11:18
Morphine Sulfate 4 mg IV NOW STA
Abnormal Lab Results
08/25/24
11:08
RBC 4.11 L 10^6/uL
(4.70-6.10)
Hgb 12.2 L g/dL
(13.0-18.0)
Hct 36.0 L %
(39.0-52.0)
APTT 46.1 H Sec
(23.4-35.0)
Creatinine 0.6 L mg/dL
(0.7-1.3)
Glucose 110 H mg/dl
(70-99)
Total Protein 6.2 L g/dl
(6.3-8.2)
08/25/24 11:08
08/25/24 11:08
Vital Signs
Initial and Last Documented VS:
Initial Vital Signs
Temp Pulse BP Pulse Ox
97.7 F 91 101/66 95
08/25/24 06:47 08/25/24 06:47 08/25/24 06:47 08/25/24 06:47
Last Documented Vital Signs
Temp Pulse Resp BP Pulse Ox
97.7 F 85 21 107/77 92
08/25/24 06:47 08/25/24 10:00 08/25/24 10:00 08/25/24 11:00 08/25/24 10:00
MDM/Problems Addressed
MDM/Problems Addressed:
Rib fracture, possible hemothorax
Chronic conditions affecting care:
Antiphospholipid antibody syndrome on chronic anticoagulation
*Radiology
Radiology exam reviewed: preliminary read by ED provider (No blood noted on CT head) and radiology read reviewed
*Pulse Oximetry
Patient hypoxic: no
*Office Worker Interpretation
Rate: normal
Interpretation: normal
Rhythm: sinus
*Critical Care Note
Total Time (30-74mins, 75-104mins- exclusive of procedures): 30 minutes
Data Reviewed
Source: patient and spouse
Further Testing Considered But Not Given:
considered CT cspine but no midline TTP. no neck pain
Patient Management
Discussion with other providers: Other (Case discussed with Dr. Robledo at trauma [facility])
Escalation/DeEscalation of care consider admission/obs:
69-year-old male with a fall. Anticoagulated. Fluid noted in pleural space. Question whether this is a simple fluid or hemothorax. Given the fact that he is anticoagulated will transfer to trauma center for monitoring. Trauma accepted at
[facility]
ED Attending Note
-
Portions of this chart may have been created with voice recognition software.� Occasional wrong word or��sound alike� substitutions may have occurred due to the inherent limitations of voice recognition software.
Discharge Plan
Departure
Patient Disposition: Acute Care Hospital
Date of Disposition: 08/25/24
Time of Disposition: 09:14
Discharge Problem:
Fracture of rib, r/o hemothorax
Prescriptions:
No Action
nortriptyline 10 MG capsule
30 mg PO HS
hydroxychloroquine 200 MG tablet
200 mg PO BID
atorvastatin 20 MG tablet
20 mg PO HS
solifenacin 5 MG tablet
5 mg PO HS
cyanocobalamin (vitamin B-12) 1,000 MCG tablet
1,000 mcg PO DAILYPRN PRN (Reason: Supplement)
thiamine HCl (vitamin B1) 100 MG tablet
100 mg PO DAILYPRN PRN (Reason: supplement)
gabapentin 600 mg tablet
1,200 mg PO Q8
amlodipine 2.5 mg tablet
2.5 mg PO HS
enoxaparin 80 mg/0.8 mL syringe
80 mg SC BID
cholecalciferol (vitamin D3) 125 mcg (5,000 unit) Tablet
125 mcg PO DAILYPRN PRN (Reason: supplement)
aspirin [Elsa Chewable Aspirin] 81 mg tablet,chewable
81 mg PO DAILY Qty: 30 5RF
Referrals:
Kurt Thornton DO [Family Provider] -
Hospital Transfer
Other hospital:
I certify that the patient requires transfer: Yes
Discussed case with accepting physician: Meena
Reason for transfer: specialties available
Interventions
Interventions:
*Risk Screen - Suicide Last Done: 08/25/24 06:48
*General Assessment Last Done: 08/25/24 07:18
*Neglect/Abuse Screening Last Done: 08/25/24 07:18
*Nursing Disposition Last Done: 08/25/24 12:17
ED-Musculoskeletal Assessment Last Done: 08/25/24 07:31
ED- Neurological Assessment Last Done: 08/25/24 07:31
ED-Skin Assessment Last Done: 08/25/24 07:31
Discharge Date and Time
Discharge Date/Time: 08/25/24 12:18
Print Language: CHADIAN
[2024-08-25 10:00] VITALS: BP 104/68
[2024-08-25 11:00] VITALS: BP 107/77
[2024-08-25 11:21] LABS: % Basophils 0.4 % (0-2); % Eosinophils 0.7 % (0-6); % Immature Granulocytes 0.1 % (0-0.5); % Lymphocytes 25.7 % (20.5-51.1); % Monocytes 6.8 % (1.7-9.3); % Neutrophils 66.3 % (42.2-75.2); Absolute Eosinophils 0.1 10^3/uL (0-0.7); Absolute Monocytes 0.5 10^3/uL (0.1-0.6); Absolute Neutrophils 5.1 10^3/uL (1.4-6.5); Hemoglobin 12.2 g/dL (13.0-18.0); Mean Corp Hgb Conc. 33.9 g/dL (33.0-37.0); Mean Corpuscular Hgb 29.7 pg (27.0-31.0); Mean Corpuscular Volume 87.6 fL (80.0-94.0); Nucleated Red Blood Cells % 0 % (-); Platelet Count 163 10^3/uL (130-400); Red Blood Cell Count 4.11 10^6/uL (4.70-6.10); Red Cell Dist. Width 12.2 % (11.5-14.5); White Blood Cell Count 7.7 10^3/uL (4.8-10.8)
[2024-08-25 11:32] LABS: INR 1.07; PT 14.2 Sec (11.4-14.6)
[2024-08-25 11:33] LABS: APTT 46.1 Sec (23.4-35.0)
[2024-08-25 11:41] LABS: ALT (SGPT) 17 U/L (0-50); AST (SGOT) 23 U/L (17-59); Albumin 3.6 g/dl (3.5-5.0); Alkaline Phosphatase 86 U/L (38-126); Blood Urea Nitrogen 13 mg/dl (9-20); Calcium 8.8 mg/dl (8.4-10.2); Carbon Dioxide 27 mmol/L (22-30); Chloride 105 mmol/L (98-107); Estimated Creatinine Clearance > 125 ml/min; Glucose 110 mg/dl (70-99); Potassium 4.5 mmol/L (3.5-5.1); Sodium 136 mmol/L (135-145); Total Bilirubin 0.6 mg/dl (0.2-1.3); Total Protein 6.2 g/dl (6.3-8.2); eGFR > 60.00
== END 2024-08-25 12:18 | disposition short-term general hospital (02) ==
LOC: EMR 06:34
PROVIDERS: EMERGENCY PHYSICIAN Emergency Medicine; FAMILY PHYSICIAN Family Medicine
DX: S22.32XA Fracture of one rib, left side, initial encounter for closed fracture (principal); W19.XXXA Unspecified fall, initial encounter; W22.09XA Striking against other stationary object, initial encounter; R91.8 Other nonspecific abnormal finding of lung field; D68.61 Antiphospholipid syndrome; E78.00 Pure hypercholesterolemia, unspecified; I10 Essential (primary) hypertension; Z86.73 Personal history of transient ischemic attack (TIA), and cerebral infarction without residual deficits; Z79.01 Long term (current) use of anticoagulants
CPT/HCPCS: 99291; 96374; 96375; 96376; 70450; 71250; 80053; 85025; 85610; 85730

== ENCOUNTER → 2024-09-26 12:28 | Outpatient (REF) | payer BC, SELFPAY ==
[2024-09-26 14:30] LABS: C-Reactive Protein < 5.00 mg/L (0.0-10.00)
[2024-09-26 14:31] LABS: ALT (SGPT) 26 U/L (0-50); AST (SGOT) 22 U/L (17-59); Albumin 4.1 g/dl (3.5-5.0); Alkaline Phosphatase 115 U/L (38-126); Blood Urea Nitrogen 8 mg/dl (9-20); Calcium 9.2 mg/dl (8.4-10.2); Carbon Dioxide 25 mmol/L (22-30); Chloride 103 mmol/L (98-107); Glucose 91 mg/dl (70-99); Potassium 4.4 mmol/L (3.5-5.1); Sodium 137 mmol/L (135-145); Total Bilirubin 0.6 mg/dl (0.2-1.3); Total Protein 6.6 g/dl (6.3-8.2); eGFR > 60.00
[2024-09-26 14:39] LABS: Erythrocyte Sed Rate 13 mm/hour (0-20)
[2024-09-26 14:46] LABS: Vitamin D, 25-OH*** 34.1 ng/mL (30-80)
== END ==
LOC: REG 12:28
PROVIDERS: ATTENDING PHYSICIAN Internal Medicine; FAMILY PHYSICIAN Family Medicine; OTHER PHYSICIAN Internal Medicine Hematology & Oncology; OTHER PHYSICIAN Psychiatry & Neurology Neurology; REFERRING PHYSICIAN Ophthalmology
DX: M80.00XS Age-related osteoporosis with current pathological fracture, unspecified site, sequela (principal); H34.12 Central retinal artery occlusion, left eye; D68.61 Antiphospholipid syndrome
CPT/HCPCS: 36415; 80053; 82306; 85652; 86140

== ENCOUNTER → 2024-09-26 14:33 | Outpatient (REF) | payer BC, SELFPAY | LOC: MRI 14:33 | PROVIDERS: ATTENDING PHYSICIAN Psychiatry & Neurology Neurology; FAMILY PHYSICIAN Family Medicine | DX: D68.61 Antiphospholipid syndrome (principal) | CPT/HCPCS: 70544; 70549; 70551; A9585 ==

== ENCOUNTER 2024-10-13 10:12 | Outpatient (RCR) | payer BC, SELFPAY | END 2024-10-13 23:59 | disposition home or self-care (01) | LOC: RPT 10:12 | PROVIDERS: ATTENDING PHYSICIAN Physical Medicine & Rehabilitation; FAMILY PHYSICIAN Family Medicine | DX: R26.89 Other abnormalities of gait and mobility (principal); S22.42XS Multiple fractures of ribs, left side, sequela; S27.1XXS Traumatic hemothorax, sequela; S32.9XXS Fracture of unspecified parts of lumbosacral spine and pelvis, sequela; Z73.6 Limitation of activities due to disability | CPT/HCPCS: 97110; 97112; 97116; 97163; 97167; 97530; 97535; 97537 ==

== ENCOUNTER 2024-10-23 09:58 | Outpatient (RCR) | payer BC, SELFPAY | END 2024-10-23 10:54 | disposition home or self-care (01) | LOC: RPT 09:58 | PROVIDERS: ATTENDING PHYSICIAN Physical Medicine & Rehabilitation; FAMILY PHYSICIAN Family Medicine | DX: R26.89 Other abnormalities of gait and mobility (principal); S22.42XS Multiple fractures of ribs, left side, sequela; S27.1XXS Traumatic hemothorax, sequela; S32.9XXS Fracture of unspecified parts of lumbosacral spine and pelvis, sequela; Z73.6 Limitation of activities due to disability | CPT/HCPCS: 97110; 97112; 97530; 97535 ==

== ENCOUNTER → 2024-11-07 13:24 | Outpatient (REF) | payer BC, SELFPAY ==
[2024-11-07 14:45] LABS: ALT (SGPT) 19 U/L (0-50); AST (SGOT) 20 U/L (17-59); Alkaline Phosphatase 83 U/L (38-126); Blood Urea Nitrogen 8 mg/dl (9-20); Calcium 9.4 mg/dl (8.4-10.2); Carbon Dioxide 25 mmol/L (22-30); Chloride 102 mmol/L (98-107); Glucose 83 mg/dl (70-99); Potassium 4.7 mmol/L (3.5-5.1); Sodium 137 mmol/L (135-145); Total Bilirubin 0.6 mg/dl (0.2-1.3); Total Protein 6.7 g/dl (6.3-8.2); eGFR > 60.00
[2024-11-07 15:01] LABS: Vitamin D, 25-OH*** 29.6 ng/mL (30-80)
== END ==
LOC: REG 13:24
PROVIDERS: ATTENDING PHYSICIAN Internal Medicine; FAMILY PHYSICIAN Family Medicine
DX: M80.00XS Age-related osteoporosis with current pathological fracture, unspecified site, sequela (principal)
CPT/HCPCS: 36415; 80053; 82306

== ENCOUNTER → 2024-11-23 13:13 | Outpatient (REF) | payer BC, SELFPAY ==
[2024-11-23 15:04] LABS: % Basophils 1.1 % (0-2); % Immature Granulocytes 0.2 % (0-0.5); % Lymphocytes 39.9 % (20.5-51.1); % Monocytes 8.5 % (1.7-9.3); % Neutrophils 47.3 % (42.2-75.2); Absolute Basophils 0.1 10^3/uL (0-0.2); Absolute Eosinophils 0.2 10^3/uL (0-0.7); Absolute Lymphocytes 2.2 10^3/uL (1.2-3.4); Absolute Monocytes 0.5 10^3/uL (0.1-0.6); Absolute Neutrophils 2.6 10^3/uL (1.4-6.5); Hemoglobin 12.8 g/dL (13.0-18.0); Mean Corp Hgb Conc. 33.7 g/dL (33.0-37.0); Mean Corpuscular Hgb 29.2 pg (27.0-31.0); Mean Corpuscular Volume 86.8 fL (80.0-94.0); Mean Platelet Volume 11.3 fL (7.4-10.4); Nucleated Red Blood Cells % 0 % (-); Platelet Count 158 10^3/uL (130-400); Red Blood Cell Count 4.38 10^6/uL (4.70-6.10); Red Cell Dist. Width 13.3 % (11.5-14.5); White Blood Cell Count 5.4 10^3/uL (4.8-10.8)
[2024-11-23 16:01] LABS: ALT (SGPT) 21 U/L (0-50); AST (SGOT) 23 U/L (17-59); Alkaline Phosphatase 66 U/L (38-126); Blood Urea Nitrogen 9 mg/dl (9-20); Calcium 9.3 mg/dl (8.4-10.2); Carbon Dioxide 30 mmol/L (22-30); Chloride 102 mmol/L (98-107); Glucose 90 mg/dl (70-99); HDL Cholesterol 54 mg/dl; LDL Cholesterol, Calculated 46 mg/dl; Potassium 5.2 mmol/L (3.5-5.1); Sodium 139 mmol/L (135-145); Total Bilirubin 0.5 mg/dl (0.2-1.3); Total Cholesterol 113 mg/dl (50-199); Total Protein 6.7 g/dl (6.3-8.2); Triglyceride 66 mg/dl (10-149); Very Low Density Lipoprotein 13 mg/dl (0-30); eGFR > 60.00
[2024-11-23 16:26] LABS: PSA, Total - Diagnostic 2.45 ng/ml (0.0-4.0)
== END ==
LOC: REG 13:13
PROVIDERS: ATTENDING PHYSICIAN Specialist; FAMILY PHYSICIAN Family Medicine
DX: N40.1 Benign prostatic hyperplasia with lower urinary tract symptoms (principal); M79.2 Neuralgia and neuritis, unspecified; Z00.00 Encounter for general adult medical examination without abnormal findings; G89.0 Central pain syndrome; I69.30 Unspecified sequelae of cerebral infarction; I65.23 Occlusion and stenosis of bilateral carotid arteries; D68.61 Antiphospholipid syndrome; D68.59 Other primary thrombophilia; Z79.01 Long term (current) use of anticoagulants; I10 Essential (primary) hypertension; E78.2 Mixed hyperlipidemia; N31.9 Neuromuscular dysfunction of bladder, unspecified; D64.9 Anemia, unspecified
CPT/HCPCS: 36415; 80053; 80061; 84153; 85025

== ENCOUNTER → 2024-12-07 13:32 | Outpatient (REF) | payer BC, SELFPAY ==
[2024-12-07 14:16] LABS: % Basophils 1.1 % (0-2); % Eosinophils 3.1 % (0-6); % Immature Granulocytes 0.3 % (0-0.5); % Lymphocytes 34.4 % (20.5-51.1); % Monocytes 9.1 % (1.7-9.3); Absolute Basophils 0.1 10^3/uL (0-0.2); Absolute Eosinophils 0.2 10^3/uL (0-0.7); Absolute Lymphocytes 2.5 10^3/uL (1.2-3.4); Absolute Monocytes 0.7 10^3/uL (0.1-0.6); Absolute Neutrophils 3.7 10^3/uL (1.4-6.5); Hematocrit 42.2 % (39.0-52.0); Hemoglobin 13.7 g/dL (13.0-18.0); Mean Corp Hgb Conc. 32.5 g/dL (33.0-37.0); Mean Corpuscular Hgb 28.2 pg (27.0-31.0); Mean Corpuscular Volume 86.8 fL (80.0-94.0); Mean Platelet Volume 10.6 fL (7.4-10.4); Nucleated Red Blood Cells % 0 % (-); Platelet Count 186 10^3/uL (130-400); Red Blood Cell Count 4.86 10^6/uL (4.70-6.10); Red Cell Dist. Width 13.6 % (11.5-14.5); White Blood Cell Count 7.2 10^3/uL (4.8-10.8)
== END ==
LOC: REG 13:32
PROVIDERS: ATTENDING PHYSICIAN Internal Medicine Hematology & Oncology; FAMILY PHYSICIAN Family Medicine
DX: D68.61 Antiphospholipid syndrome (principal); I67.81 Acute cerebrovascular insufficiency; D50.9 Iron deficiency anemia, unspecified
CPT/HCPCS: 36415; 85025

== ENCOUNTER 2025-04-09 08:47 | Emergency (ER) | payer BC, SELFPAY ==
[2025-04-09 08:49] VITALS: BP 128/78
--- NOTE | 2025-04-09 09:05 | ED.GENMED ---
History of Present Illness
General
Chief Complaint: Fall
Source: patient
Time Seen by Provider: 04/09/25 08:55
History of Present Illness
History of Present Illness:
This patient is a 69-year-old male who was [place], got his foot caught, and fell onto his left side. He fell onto grass. He did not hit his head. This happened yesterday, and he states that he had trouble sleeping
due to pain in the left anterior inferior aspect of his thorax. Pain is worse with certain movements or deep breaths. He denies associated hemoptysis, dyspnea, neck pain, headache, dizziness, back pain, abdominal pain, or other complaints.
Patient did have rib fractures in August and wondered if he has recurrent fractures versus 'just a bruise'
Past History
Past History
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
ED Past Surgical History: Appendectomy
Social History
Tobacco: Non-smoker
Alcohol: Occasional
Drug: None
Personal:
Living: with family
Employment: Employed
Family History
Family History: Other (Noncontributory)
Phy Exam
Physical Exam
Physical Exam:
GENERAL: Alert , in no apparent distress
EYE: pupils equal and reactive
NECK: Supple, no significant adenopathy, no midline tenderness.
ENT: o/p clr, mmm.
CARDIAC: Regular rate and rhythm. No bruising noted of thorax, no crepitus. There is mild tenderness noted at the left anterior mid to lower thorax area without associated soft tissue swelling, bruising, or other abnormalities.
LUNGS: Clear breath sounds bilaterally, no acute respiratory distress, no wheezes/rales/rhonchi.
ABDOMEN: Soft, without focal tenderness, no r/g, no cvat
NEUROLOGICAL: Alert and oriented, baseline left-sided weakness, no new neurofindings
SKIN: Warm and dry, skin intact.
MUSCULOSKELETAL: No edema, well perfused.
PSYCH: Normal and appropriate interaction.
Course
Orders/Labs/Results
Orders:
Orders
04/09/25 08:55
Ribs, Left 3 View W/PA Chest CR [CR Ribs-left 3 Vw W/pa Chest] Urgent
Comment:
Reason For Exam: fall
04/09/25 09:30
CT Chest W/o Iv Contrast Urgent
Comment:
Reason For Exam: s/p fall, L sided pain, on AC
Vital Signs
Initial and Last Documented VS:
Initial Vital Signs
Temp Pulse Resp BP Pulse Ox
98.0 F 80 16 128/78 96
04/09/25 08:49 04/09/25 08:49 04/09/25 08:49 04/09/25 08:49 04/09/25 08:49
Last Documented Vital Signs
Temp Pulse Resp BP Pulse Ox
98.5 F 86 20 155/81 100
04/09/25 09:50 04/09/25 09:50 04/09/25 09:50 04/09/25 09:50 04/09/25 09:50
*Pulse Oximetry
SaO2: 96
Oxygen Mode of Delivery: Room air
Patient hypoxic: no
*Critical Care Note
Total Time (30-74mins, 75-104mins- exclusive of procedures): Not Applicable
Update Note
Update Note:
Patient presents to the Emergency Department with ____left anterior thorax pain status post fall
Number and Complexity of Problems Addressed at the Encounter
� Chronic conditions affecting care:
� Acute Exacerbation and/or Progression of Chronic Illness:
� Differential Diagnosis includes: But not limited to hemothorax, pneumothorax, rib fracture, muscle strain, etc. etc.
Amount and/or Complexity of Data to be Reviewed and Analyzed
� I performed an independent evaluation of and my interpretation is:
EKG:
CT:Possible subtle partial nondisplaced fractures involving the anterior left fourth, fifth, and sixth ribs.
Old healed left rib fractures are noted.
No pneumothorax or pleural effusion.
Mild bibasilar atelectasis, left greater than right.
Stable mild superior plate compression deformity of T5.
If the patient has emphysema, patient should be assessed for an annual low dose lung cancer CT program, as pulmonary emphysema is an independent risk factor for lung cancer.
Xrays: cxr no acute fx noted, read by rads
Laboratory Studies:
Other:
� Review of other/old records reveals:
� Clinical information was obtained by an independent historian:
� Prescriptions/Medications Considered but not given:
� Further testing considered but not performed:
Risk of Complications and/or Morbidity or Mortality of Patient Management
� Social determinants of health affecting care:
� Discussion with other providers (PCP, Hospitalists, Consultants, etc):
� Escalation of care including admission/observation vs risk of discharge considered: Patient stable here, normal pulse ox no respiratory distress. CT does not demonstrate a pneumothorax or hemothorax. I printed out the report
for both the x-ray and the CAT scan of the chest encouraging patient to follow-up with his doctor, aware of possible but not fully confirmed rib fractures. Discussed with patient portance of follow-up and reasons to return to the ER. Also advised
regarding risks and benefits of narcotics including sedation, constipation, not drinking alcohol with it, etc.
ED Attending Note
-
Portions of this chart may have been created with voice recognition software.� Occasional wrong word or��sound alike� substitutions may have occurred due to the inherent limitations of voice recognition software.
Discharge Plan
Departure
Patient Disposition: Home (Routine Discharge)
Date of Disposition: 04/09/25
Time of Disposition: 12:06
Patient with high blood pressure during this ER visit?: Yes
Condition: Good
Discharge Problem:
Fracture of rib
Instructions: Rib fracture or bruised rib - ED (DC), BLOOD PRESSURE
Prescriptions:
New
oxycodone-acetaminophen [Percocet] 5-325 mg tablet
1 tab PO Q4HPRN PRN (Reason: pain) Qty: 13 0RF
No Action
nortriptyline 10 MG capsule
30 mg PO HS
hydroxychloroquine 200 MG tablet
200 mg PO BID
atorvastatin 20 MG tablet
20 mg PO 1700
gabapentin 600 mg tablet
1,200 mg PO Q8
aspirin 81 mg Tablet,Delayed Release (Dr/Ec)
81 mg PO DAILY
acetaminophen 325 mg Tablet
650 mg PO Q6HPRN PRN (Reason: mild pain) 30 Days Qty: 100 0RF
lidocaine 4 % Adhesive Patch,Medicated
1 patch topical DAILY 30 Days Qty: 30 0RF
methocarbamol 750 mg Tablet
500 mg PO BID PRN (Reason: muscle spasms) 7 Days Qty: 10 0RF
cyanocobalamin (vitamin B-12) 1,000 MCG tablet
1,000 mcg PO DAILY Qty: 0 0RF
thiamine HCl (vitamin B1) 100 MG tablet
100 mg PO DAILY Qty: 0 0RF
tamsulosin 0.4 mg Capsule
0.4 mg PO DAILY 30 Days Qty: 30 0RF
docusate sodium [Colace] 100 mg Capsule
100 mg PO BID Qty: 0 0RF
finasteride 5 mg Tablet
5 mg PO DAILY 30 Days Qty: 30 0RF
solifenacin 5 MG tablet
5 mg PO DAILY 30 Days Qty: 30 0RF
cholecalciferol (vitamin D3) 125 mcg (5,000 unit) Tablet
125 mcg PO DAILY Qty: 0 0RF
amlodipine 2.5 mg Tablet
2.5 mg PO DAILY 30 Days Qty: 30 0RF
Referrals:
Kurt Thornton DO [Family Provider, Family Practice]
Activity Restrictions/Additional Instructions:
IT IS POSSIBLE THAT YOU HAVE FRACTURES OF SOME OF YOUR RIBS. PLEASE SEE ATTACHED CAT SCAN REPORT. YOU SHOULD BRING THIS TO YOUR DOCTOR FOR FOLLOW-UP. IF YOU DEVELOP INCREASING NEW OR PERSISTENT PAIN, ANY TROUBLE BREATHING, BLEEDING, FEVER, OR
OTHER WORRISOME SIGNS, PLEASE RETURN TO THE ER IMMEDIATELY!
Interventions
Interventions:
*Risk Screen - Suicide Last Done: 04/09/25 09:50
*General Assessment Last Done: 04/09/25 09:50
*Neglect/Abuse Screening Last Done: 04/09/25 09:50
*ED- Fall Risk Assessment Last Done: 04/09/25 09:50
*ED COVID-19 Vaccine History Last Done: 04/09/25 09:50
ED-Musculoskeletal Assessment Last Done: 04/09/25 09:50
ED- Neurological Assessment Last Done: 04/09/25 09:50
ED-Skin Assessment Last Done: 04/09/25 09:50
Discharge Date and Time
Print Language: GREEK
[2025-04-09 09:50] VITALS: BP 155/81
== END 2025-04-09 12:30 | disposition home or self-care (01) ==
LOC: EMR 08:47
PROVIDERS: EMERGENCY PHYSICIAN Emergency Medicine; FAMILY PHYSICIAN Family Medicine
DX: S22.32XA Fracture of one rib, left side, initial encounter for closed fracture (principal); W19.XXXA Unspecified fall, initial encounter; E78.00 Pure hypercholesterolemia, unspecified; I10 Essential (primary) hypertension; Z86.73 Personal history of transient ischemic attack (TIA), and cerebral infarction without residual deficits
CPT/HCPCS: 99284; 71101; 71250

== ENCOUNTER → 2025-06-12 10:23 | Outpatient (REF) | payer BC, SELFPAY ==
[2025-06-12 11:22] LABS: Hematocrit 40.0 % (39.0-52.0); Hemoglobin 13.1 g/dL (13.0-18.0); Mean Corp Hgb Conc. 32.8 g/dL (33.0-37.0); Mean Corpuscular Volume 92.2 fL (80.0-94.0); Nucleated Red Blood Cells % 0 % (-); Platelet Count 144 10^3/uL (130-400); Red Cell Dist. Width 13.0 % (11.5-14.5)
[2025-06-12 13:08] LABS: Iron 69 ug/dl (49-181)
[2025-06-12 13:18] LABS: Total Iron Binding Capacity 275 ug/dl (261-462)
== END ==
LOC: REG 10:23
PROVIDERS: ATTENDING PHYSICIAN Internal Medicine Hematology & Oncology; FAMILY PHYSICIAN Family Medicine
DX: D68.61 Antiphospholipid syndrome (principal); I67.81 Acute cerebrovascular insufficiency; D50.9 Iron deficiency anemia, unspecified
CPT/HCPCS: 36415; 83540; 83550; 85025